=== PATIENT | male | born 1955 | race Caucasian/White ===

== ENCOUNTER → 2017-01-18 | Outpatient (REF) | payer OTHER | LOC: M LAB REF 14:06 | PROVIDERS: ATTEND Physician Assistant Medical | DX: R19.7 Diarrhea, unspecified (principal) ==

== ENCOUNTER → 2017-02-06 | Outpatient (CLI) | payer OTHER ==
[2017-02-06 07:45] LABS: ALBUMIN 3.9 GM/DL (3.2-5.2); ALBUMIN/GLOBULIN RATIO 1.44 (1.00-1.93); ALKALINE PHOSPHATASE 117 U/L (45-117); ALT/SGPT 40 U/L (12-78); ANION GAP 11 MEQ/L (8-16); AST/SGOT 31 U/L (15-37); BILIRUBIN,TOTAL 0.9 MG/DL (0.2-1.0); BLOOD UREA NITROGEN 26 MG/DL (7-18); CALCIUM LEVEL 7.4 MG/DL (8.8-10.2); CARBON DIOXIDE LEVEL 23 MEQ/L (21-32); CHLORIDE LEVEL 106 MEQ/L (98-107); CHOLESTEROL LEVEL 132 MG/DL (<200); CREATININE FOR GFR 1.09 MG/DL (0.70-1.30); GLOMERULAR FILTRATION RATE > 60.0 (>49); GLUCOSE, FASTING 76 MG/DL (80-110); POTASSIUM SERUM 4.2 MEQ/L (3.5-5.1); SODIUM LEVEL 140 MEQ/L (136-145); TOTAL PROTEIN 6.6 GM/DL (6.4-8.2); TRIGLYCERIDES LEVEL 145 MG/DL (<150)
== END ==
LOC: M LAB 06:40
PROVIDERS: ATTEND Internal Medicine
DX: E11.9 Type 2 diabetes mellitus without complications (principal); E78.00 Pure hypercholesterolemia, unspecified

== ENCOUNTER → 2017-02-17 | Outpatient (CLI) | payer OTHER ==
[~2017-02-17] MED LIST: ANDR1.62 TD; ASPI32ECTA PO; CARV25TA PO; FOLI1TAB2 PO; FURO40TA2 PO; GLYB5TA PO; IMOD2CAP PO; INVO100T PO; MELO15TA4 PO; METF500T PO; OMEP40CA2 PO; POTA550T2 PO; QUIN40TA5 PO; SIMV40TA2 PO; VICT18IN SC
[2017-02-17 13:20] LABS: BASO # 0.1 K/mm3 (0.0-0.2); BASO % 0.9 % (0.0-1.0); EOS # 0.1 K/mm3 (0.0-0.50); LARGE UNSTAINED CELL # 0.1 K/mm3 (0.0-0.4); LARGE UNSTAINED CELL % 2.1 % (0.0-4.0); LYMPH % 16.4 % (24.0-44.0); MEAN CORPUSCULAR HEMOGLOBIN 30.5 pg (27.0-33.0); MEAN CORPUSCULAR HGB CONC 32.1 g/dl (32.0-36.5); MEAN CORPUSCULAR VOLUME 95.1 fl (80.0-96.0); MONO # 0.4 K/mm3 (0.0-0.8); MONO % 6.8 % (0.0-5.0); NEUTROPHILS # 4.5 K/mm3 (1.8-7.7); NEUTROPHILS % 71.8 % (36.0-66.0); PLATELET COUNT, AUTOMATED 143 k/mm3 (150-450); RED CELL DISTRIBUTION WIDTH 12.5 % (11.5-14.5); WHITE BLOOD COUNT 6.3 K/mm3 (4.0-10.0)
[2017-02-17 13:49] LABS: ERYTHROCYTE SEDIMENTATION RATE 11 mm/hr (0-20)
[2017-02-17 14:14] LABS: ALBUMIN 3.7 GM/DL (3.2-5.2); ALBUMIN/GLOBULIN RATIO 1.42 (1.00-1.93); ALKALINE PHOSPHATASE 111 U/L (45-117); ALT/SGPT 41 U/L (12-78); ANION GAP 9 MEQ/L (8-16); AST/SGOT 29 U/L (15-37); BLOOD UREA NITROGEN 21 MG/DL (7-18); CALCIUM LEVEL 8.7 MG/DL (8.8-10.2); CARBON DIOXIDE LEVEL 25 MEQ/L (21-32); CHLORIDE LEVEL 106 MEQ/L (98-107); CREATININE FOR GFR 1.04 MG/DL (0.70-1.30); FREE T4 0.83 NG/DL (0.76-1.46); GLOMERULAR FILTRATION RATE > 60.0 (>49); GLUCOSE, FASTING 126 MG/DL (80-110); POTASSIUM SERUM 4.4 MEQ/L (3.5-5.1); SODIUM LEVEL 140 MEQ/L (136-145); TOTAL PROTEIN 6.3 GM/DL (6.4-8.2)
== END ==
LOC: M LAB 12:32
PROVIDERS: ATTEND Physician Assistant Medical
DX: R19.7 Diarrhea, unspecified (principal)

== ENCOUNTER → 2017-02-20 | Outpatient (CLI) | payer OTHER ==
[~2017-02-20] VITALS: Ht 167.6 cm; Wt 90.7 kg
[~2017-02-20] MED LIST changes: +NS 1,000 ML IV ONE; +PROPOFOL 200 MG/20 ML VIAL As Ordered ONE
--- NOTE | 2017-02-20 09:30 | ROOR ---
Patient Name: Kirill Rivera Procedure Date: 02/20/2017 9:12 AM Date of : 1955 Age: 61 Room: [facility] Gender: Male Note Status: Finalized Procedure: Colonoscopy Indications: High risk colon cancer surveillance: Personal history of colonic polyps, Last colonoscopy: December 2013 Providers: Nikolas العراقي MD Referring MD: Eleuterio Esquivel MD Requesting Provider: Medicines: Monitored Anesthesia Care Complications: No immediate complications. Procedure: Pre-Anesthesia Assessment: - The heart rate, respiratory rate, oxygen saturations, blood pressure, adequacy of pulmonary ventilation, and response to care were monitored throughout the procedure. The Colonoscope was introduced through the anus and advanced to the cecum, identified by appendiceal orifice and ileocecal valve. The colonoscopy was performed without difficulty. The patient tolerated the procedure well. The quality of the bowel preparation was good. Findings: The perianal and digital rectal examinations were normal. A tattoo was seen in the mid rectum. A post-polypectomy scar was found at the tattoo site. There was no evidence of residual polyp tissue. A few small-mouthed diverticula were found in the sigmoid colon. Small Internal Hemorrhoids. The entire examined colon appeared normal on direct and retroflexion views. Impression: - A tattoo was seen in the mid rectum. A post-polypectomy scar was found at the tattoo site. There was no evidence of residual polyp tissue. - Mild diverticulosis in the sigmoid colon. - Small Internal Hemorrhoids. - The entire examined colon is normal on direct and retroflexion views. - No specimens collected. Recommendation: - Repeat colonoscopy in 5 years for surveillance. Nikolas العراقي MD Nikolas العراقي MD 02/20/2017 9:29:29 AM This report has been signed electronically. Number of Addenda: 0 Note Initiated On: 02/20/2017 9:12 AM Estimated Blood Loss: Estimated blood loss: none.
[2017-02-20 09:40] VITALS: BP 137/79
== END ==
LOC: M OPP 08:34
PROVIDERS: ATTEND Internal Medicine Gastroenterology
DX: Z12.11 Encounter for screening for malignant neoplasm of colon (principal); Z86.010 Personal history of colon polyps; K57.30 Diverticulosis of large intestine without perforation or abscess without bleeding; K64.8 Other hemorrhoids; I10 Essential (primary) hypertension; E11.9 Type 2 diabetes mellitus without complications; E78.5 Hyperlipidemia, unspecified; R19.7 Diarrhea, unspecified; R19.4 Change in bowel habit; Z95.5 Presence of coronary angioplasty implant and graft; I25.10 Atherosclerotic heart disease of native coronary artery without angina pectoris; K21.9 Gastro-esophageal reflux disease without esophagitis; M19.90 Unspecified osteoarthritis, unspecified site; Z79.82 Long term (current) use of aspirin; Z79.84 Long term (current) use of oral hypoglycemic drugs; Z79.4 Long term (current) use of insulin; Z79.899 Other long term (current) drug therapy

== ENCOUNTER → 2017-08-07 | Outpatient (CLI) | payer OTHER ==
[~2017-08-07] MED LIST changes: +ASPI325T24 PO; -ASPI32ECTA PO; -FOLI1TAB2 PO; +FOLI1TAB4 PO; -METF500T PO; +METF500T13 PO; -NS 1,000 ML IV ONE; -PROPOFOL 200 MG/20 ML VIAL As Ordered ONE; +QUIN1TAB15 PO; -QUIN40TA5 PO
[2017-08-07 08:03] LABS: MEAN CORPUSCULAR HEMOGLOBIN 28.8 pg (27.0-33.0); MEAN CORPUSCULAR HGB CONC 32.4 g/dl (32.0-36.5); MEAN CORPUSCULAR VOLUME 88.8 fl (80.0-96.0); PLATELET COUNT, AUTOMATED 159 10^3/uL (150-450); RED CELL DISTRIBUTION WIDTH 14.9 % (11.5-14.5); WHITE BLOOD COUNT 5.9 10^3/uL (4.0-10.0)
[2017-08-07 08:13] LABS: ALBUMIN 3.9 GM/DL (3.2-5.2); ALBUMIN/GLOBULIN RATIO 1.34 (1.00-1.93); ALKALINE PHOSPHATASE 91 U/L (45-117); ALT/SGPT 43 U/L (12-78); ANION GAP 11 MEQ/L (8-16); AST/SGOT 29 U/L (15-37); BILIRUBIN,TOTAL 1.5 MG/DL (0.2-1.0); BLOOD UREA NITROGEN 24 MG/DL (7-18); CALCIUM LEVEL 8.9 MG/DL (8.8-10.2); CARBON DIOXIDE LEVEL 23 MEQ/L (21-32); CHLORIDE LEVEL 105 MEQ/L (98-107); CREATININE FOR GFR 1.21 MG/DL (0.70-1.30); GLOMERULAR FILTRATION RATE > 60.0 (>49); GLUCOSE, FASTING 143 MG/DL (80-110); MAGNESIUM LEVEL 2.3 MG/DL (1.8-2.4); POTASSIUM SERUM 4.3 MEQ/L (3.5-5.1); SODIUM LEVEL 139 MEQ/L (136-145); TOTAL PROTEIN 6.8 GM/DL (6.4-8.2)
== END ==
LOC: M LAB 06:15
PROVIDERS: ATTEND Internal Medicine
DX: K76.0 Fatty (change of) liver, not elsewhere classified (principal); E11.9 Type 2 diabetes mellitus without complications; I10 Essential (primary) hypertension; Z86.010 Personal history of colon polyps

== ENCOUNTER → 2018-02-05 | Outpatient (CLI) | payer OTHER ==
[2018-02-05 06:59] LABS: HEMATOCRIT 39.5 % (42.0-52.0); HEMOGLOBIN 12.8 g/dl (13.5-17.5); MEAN CORPUSCULAR HGB CONC 32.4 g/dl (32.0-36.5); MEAN CORPUSCULAR VOLUME 89.4 fl (80.0-96.0); PLATELET COUNT, AUTOMATED 140 10^3/uL (150-450); RED BLOOD COUNT 4.42 10^6/uL (4.30-6.10); RED CELL DISTRIBUTION WIDTH 13.4 % (11.5-14.5)
[2018-02-05 07:36] LABS: ALBUMIN 3.2 GM/DL (3.2-5.2); ALBUMIN/GLOBULIN RATIO 1.07 (1.00-1.93); ALKALINE PHOSPHATASE 68 U/L (45-117); ALT/SGPT 52 U/L (12-78); ANION GAP 6 MEQ/L (8-16); AST/SGOT 53 U/L (7-37); BLOOD UREA NITROGEN 19 MG/DL (7-18); CALCIUM LEVEL 8.4 MG/DL (8.8-10.2); CARBON DIOXIDE LEVEL 24 MEQ/L (21-32); CHLORIDE LEVEL 109 MEQ/L (98-107); CHOLESTEROL LEVEL 90 MG/DL (<200); CHOLESTEROL RISK RATIO 3.103 (<5); CREATININE FOR GFR 1.08 MG/DL (0.70-1.30); GLOMERULAR FILTRATION RATE > 60.0 (>49); GLUCOSE, FASTING 78 MG/DL (70-100); HDL CHOLESTEROL 29 MG/DL (>40); LDL CHOLESTEROL 21.4 MG/DL (<100); NON-HDL-C 61 MG/DL; POTASSIUM SERUM 4.1 MEQ/L (3.5-5.1); SODIUM LEVEL 139 MEQ/L (136-145); TOTAL PROTEIN 6.2 GM/DL (6.4-8.2); TRIGLYCERIDES LEVEL 198 MG/DL (<150)
[2018-02-05 11:46] LABS: ESTIMATED AVERAGE GLUCOSE 134 MG/DL (60-110); HEMOGLOBIN A1c 6.3 %
== END ==
LOC: M LAB 05:56
DX: Z51.81 Encounter for therapeutic drug level monitoring (principal); Z79.899 Other long term (current) drug therapy; H40.9 Unspecified glaucoma; I25.10 Atherosclerotic heart disease of native coronary artery without angina pectoris; E78.00 Pure hypercholesterolemia, unspecified; E11.42 Type 2 diabetes mellitus with diabetic polyneuropathy

== ENCOUNTER → 2018-07-23 | Outpatient (CLI) | payer OTHER ==
[2018-07-23 06:46] LABS: HEMATOCRIT 40.1 % (42.0-52.0); HEMOGLOBIN 12.9 g/dl (13.5-17.5); MEAN CORPUSCULAR HEMOGLOBIN 28.7 pg (27.0-33.0); MEAN CORPUSCULAR HGB CONC 32.2 g/dl (32.0-36.5); MEAN CORPUSCULAR VOLUME 89.3 fl (80.0-96.0); PLATELET COUNT, AUTOMATED 138 10^3/uL (150-450); RED BLOOD COUNT 4.49 10^6/uL (4.30-6.10); RED CELL DISTRIBUTION WIDTH 14.8 % (11.5-14.5); WHITE BLOOD COUNT 6.3 10^3/uL (4.0-10.0)
[2018-07-23 07:04] LABS: ESTIMATED AVERAGE GLUCOSE 160 MG/DL (60-110); HEMOGLOBIN A1c 7.2 %
[2018-07-23 07:19] LABS: ALBUMIN 3.9 GM/DL (3.2-5.2); ALKALINE PHOSPHATASE 70 U/L (45-117); ALT/SGPT 31 U/L (12-78); ANION GAP 10 MEQ/L (8-16); AST/SGOT 24 U/L (7-37); BILIRUBIN,TOTAL 1.3 MG/DL (0.2-1.0); BLOOD UREA NITROGEN 25 MG/DL (7-18); CALCIUM LEVEL 8.5 MG/DL (8.8-10.2); CARBON DIOXIDE LEVEL 23 MEQ/L (21-32); CHLORIDE LEVEL 106 MEQ/L (98-107); CHOLESTEROL LEVEL 125 MG/DL (<200); CHOLESTEROL RISK RATIO 2.777 (<5); CREATININE FOR GFR 1.32 MG/DL (0.70-1.30); GLOMERULAR FILTRATION RATE 58.3 (>49); GLUCOSE, FASTING 133 MG/DL (70-100); HDL CHOLESTEROL 45 MG/DL (>40); LDL CHOLESTEROL 50 MG/DL (<100); MAGNESIUM LEVEL 2.1 MG/DL (1.8-2.4); NON-HDL-C 80 MG/DL; POTASSIUM SERUM 4.6 MEQ/L (3.5-5.1); SODIUM LEVEL 139 MEQ/L (136-145); TOTAL PROTEIN 6.9 GM/DL (6.4-8.2); TRIGLYCERIDES LEVEL 151 MG/DL (<150)
[2018-07-23 07:40] LABS: MALB URINE SIEMENS 7.6 MG/L
[2018-07-23 07:47] LABS: MAU/CREAT RATIO 4.7 MCG/MG (0.0-30.0)
== END ==
LOC: M LAB 06:12
DX: E11.42 Type 2 diabetes mellitus with diabetic polyneuropathy (principal); I10 Essential (primary) hypertension
CPT/HCPCS: 83735

== ENCOUNTER → 2018-11-05 | Outpatient (REF) | payer OTHER ==
[~2018-11-05] MED LIST changes: -ASPI325T24 PO; +ASPI325T25 PO; +FOLI1TAB11 PO; -FOLI1TAB4 PO; +MELO15TA28 PO; -MELO15TA4 PO; -QUIN1TAB15 PO; +QUIN1TAB4 PO
[2018-11-05 12:38] LABS: HEMOGLOBIN A1c 7.1 %
== END ==
LOC: M SFHCPLAZ 08:24
PROVIDERS: ATTEND Internal Medicine
DX: E11.42 Type 2 diabetes mellitus with diabetic polyneuropathy (principal)

== ENCOUNTER → 2019-01-29 | Outpatient (CLI) | payer OTHER ==
[~2019-01-29] MED LIST changes: +ASPI-255 PO; -ASPI325T25 PO
[2019-01-29 07:29] LABS: HEMOGLOBIN A1c 6.7 %
[2019-01-29 07:40] LABS: ALBUMIN 3.8 GM/DL (3.2-5.2); BILIRUBIN,TOTAL 0.8 MG/DL (0.2-1.0); CALCIUM LEVEL 8.5 MG/DL (8.8-10.2); CREATININE FOR GFR 1.38 MG/DL (0.70-1.30); GLOMERULAR FILTRATION RATE 55.4 (>49); MAGNESIUM LEVEL 2.3 MG/DL (1.8-2.4); POTASSIUM SERUM 4.6 MEQ/L (3.5-5.1); TOTAL PROTEIN 6.4 GM/DL (6.4-8.2)
== END ==
LOC: M LAB 06:09
PROVIDERS: ATTEND Internal Medicine
DX: E11.42 Type 2 diabetes mellitus with diabetic polyneuropathy (principal)

== ENCOUNTER → 2019-07-26 | Outpatient (CLI) | payer OTHER ==
[~2019-07-26] MED LIST changes: -OMEP40CA2 PO; +OMEP40CA97 PO
[2019-07-26 07:25] LABS: HEMATOCRIT 42.2 % (42.0-52.0); HEMOGLOBIN 13.8 g/dl (13.5-17.5); MEAN CORPUSCULAR HGB CONC 32.7 g/dl (32.0-36.5); MEAN CORPUSCULAR VOLUME 91.7 fl (80.0-96.0); PLATELET COUNT, AUTOMATED 139 10^3/uL (150-450); WHITE BLOOD COUNT 4.7 10^3/uL (4.0-10.0)
[2019-07-26 07:40] LABS: HEMOGLOBIN A1c 8.2 %
[2019-07-26 07:57] LABS: ALBUMIN 3.9 GM/DL (3.2-5.2); ALT/SGPT 42 U/L (12-78); BILIRUBIN,TOTAL 1.2 MG/DL (0.2-1.0); BLOOD UREA NITROGEN 24 MG/DL (7-18); CARBON DIOXIDE LEVEL 24 MEQ/L (21-32); CHLORIDE LEVEL 107 MEQ/L (98-107); CHOLESTEROL LEVEL 135 MG/DL (<200); CHOLESTEROL RISK RATIO 2.934 (<5); CREATININE FOR GFR 1.23 MG/DL (0.70-1.30); GLOMERULAR FILTRATION RATE > 60.0 (>49); GLUCOSE, FASTING 181 MG/DL (70-100); HDL CHOLESTEROL 46 MG/DL (>40); LDL CHOLESTEROL 65 MG/DL (<100); MAGNESIUM LEVEL 2.3 MG/DL (1.8-2.4); NON-HDL-C 89 MG/DL; POTASSIUM SERUM 4.5 MEQ/L (3.5-5.1); SODIUM LEVEL 141 MEQ/L (136-145); TOTAL PROTEIN 6.6 GM/DL (6.4-8.2); TRIGLYCERIDES LEVEL 119 MG/DL (<150)
[2019-07-26 08:02] LABS: CREATININE, URINE 96.7 MG/DL; MALB URINE SIEMENS 5.4 MG/L; MAU/CREAT RATIO 5.5 MCG/MG (0.0-30.0)
== END ==
LOC: M LAB 06:57
PROVIDERS: ATTEND Internal Medicine
DX: E11.42 Type 2 diabetes mellitus with diabetic polyneuropathy (principal); I10 Essential (primary) hypertension; E78.00 Pure hypercholesterolemia, unspecified; Z79.899 Other long term (current) drug therapy

== ENCOUNTER → 2019-11-29 | Outpatient (CLI) | payer OTHER ==
[~2019-11-29] MED LIST changes: -SIMV40TA2 PO; +SIMV40TA20 PO
[2019-11-29 06:55] LABS: HEMOGLOBIN A1c 7.9 %
[2019-11-29 06:58] LABS: ALBUMIN 4.1 GM/DL (3.2-5.2); ALT/SGPT 40 U/L (12-78); BILIRUBIN,TOTAL 1.1 MG/DL (0.2-1.0); BLOOD UREA NITROGEN 23 MG/DL (7-18); CARBON DIOXIDE LEVEL 26 MEQ/L (21-32); CHLORIDE LEVEL 107 MEQ/L (98-107); CREATININE FOR GFR 1.15 MG/DL (0.70-1.30); GLOMERULAR FILTRATION RATE > 60.0 (>49); GLUCOSE, FASTING 151 MG/DL (70-100); POTASSIUM SERUM 4.6 MEQ/L (3.5-5.1); SODIUM LEVEL 140 MEQ/L (136-145); TOTAL PROTEIN 6.9 GM/DL (6.4-8.2)
== END ==
LOC: M LAB 06:15
PROVIDERS: ATTEND Internal Medicine
DX: E11.9 Type 2 diabetes mellitus without complications (principal)

== ENCOUNTER → 2020-06-02 | Outpatient (CLI) | payer OTHER ==
[2020-07-27 04:18] LABS: ALBUMIN 3.9 GM/DL (3.2-5.2); ALT/SGPT 29 U/L (12-78); BLOOD UREA NITROGEN 32 MG/DL (7-18); CALCIUM LEVEL 8.9 MG/DL (8.8-10.2); CARBON DIOXIDE LEVEL 24 MEQ/L (21-32); CHLORIDE LEVEL 107 MEQ/L (98-107); CHOLESTEROL LEVEL 149 MG/DL (<200); CHOLESTEROL RISK RATIO 2.921 (<5); CREATININE FOR GFR 1.17 MG/DL (0.70-1.30); GLOMERULAR FILTRATION RATE > 60.0 (>49); GLUCOSE, FASTING 202 MG/DL (70-100); HDL CHOLESTEROL 51 MG/DL (>40); LDL CHOLESTEROL 72 MG/DL (<100); MAGNESIUM LEVEL 2.5 MG/DL (1.8-2.4); MALB URINE SIEMENS < 5.0 MG/L; NON-HDL-C 98 MG/DL; POTASSIUM SERUM 4.7 MEQ/L (3.5-5.1); SODIUM LEVEL 138 MEQ/L (136-145); TOTAL PROTEIN 6.8 GM/DL (6.4-8.2); TRIGLYCERIDES LEVEL 128 MG/DL (<150)
== END ==
LOC: M LAB 06:22
PROVIDERS: ATTEND Internal Medicine
DX: I10 Essential (primary) hypertension (principal); E11.42 Type 2 diabetes mellitus with diabetic polyneuropathy; E78.00 Pure hypercholesterolemia, unspecified

== ENCOUNTER → 2020-06-05 | Outpatient (CLI) | payer OTHER | LOC: M RAD 15:15 | PROVIDERS: ATTEND Orthopaedic Surgery Sports Medicine | DX: S46.211A Strain of muscle, fascia and tendon of other parts of biceps, right arm, initial encounter (principal); M25.511 Pain in right shoulder ==

== ENCOUNTER → 2020-07-01 | Outpatient (CLI) | payer OTHER ==
[2020-07-01 07:56] LABS: HEMOGLOBIN A1c 7.8 %
== END ==
LOC: M LAB 06:14
PROVIDERS: ATTEND Internal Medicine
DX: E11.42 Type 2 diabetes mellitus with diabetic polyneuropathy (principal)

== ENCOUNTER → 2020-10-15 | Outpatient (REF) | payer OTHER ==
[2020-10-15 11:14] LABS: BASO # 0.1 10^3/uL (0.0-0.2); BASO % 0.9 % (0.0-1.0); EOS # 0.1 10^3/uL (0.0-0.5); EOS % 2.5 % (0.0-3.0); HEMATOCRIT 45.9 % (42.0-52.0); HEMOGLOBIN 14.6 g/dl (13.5-17.5); LYMPH # 0.8 10^3/uL (1.5-5.0); LYMPH % 15.6 % (24.0-44.0); MEAN CORPUSCULAR HEMOGLOBIN 31.2 pg (27.0-33.0); MEAN CORPUSCULAR HGB CONC 31.8 g/dl (32.0-36.5); MEAN CORPUSCULAR VOLUME 98.1 fl (80.0-96.0); MONO # 0.5 10^3/uL (0.0-0.8); MONO % 10.2 % (0.0-5.0); NEUTROPHILS # 3.7 10^3/uL (1.5-8.5); PLATELET COUNT, AUTOMATED 147 10^3/uL (150-450); RED BLOOD COUNT 4.68 10^6/uL (4.30-6.10); WHITE BLOOD COUNT 5.3 10^3/uL (4.0-10.0)
[2020-10-15 11:29] LABS: HEMOGLOBIN A1c 9.3 %
[2020-10-15 11:59] LABS: ALBUMIN 4.1 GM/DL (3.2-5.2); ALT/SGPT 33 U/L (12-78); BILIRUBIN,TOTAL 0.9 MG/DL (0.2-1.0); BLOOD UREA NITROGEN 28 MG/DL (7-18); CALCIUM LEVEL 8.6 MG/DL (8.8-10.2); CARBON DIOXIDE LEVEL 26 MEQ/L (21-32); CHLORIDE LEVEL 103 MEQ/L (98-107); CREATININE FOR GFR 1.21 MG/DL (0.70-1.30); GLOMERULAR FILTRATION RATE > 60.0 (>49); GLUCOSE, FASTING 223 MG/DL (70-100); MAGNESIUM LEVEL 2.3 MG/DL (1.8-2.4); POTASSIUM SERUM 4.4 MEQ/L (3.5-5.1); SODIUM LEVEL 136 MEQ/L (136-145); TOTAL PROTEIN 6.9 GM/DL (6.4-8.2)
[2020-10-15 12:08] LABS: CREATININE, URINE 24.7 MG/DL; MALB URINE SIEMENS 5.2 MG/L
== END ==
LOC: M SFHCPLAZ 09:16
PROVIDERS: ATTEND Internal Medicine
DX: I10 Essential (primary) hypertension (principal); E11.42 Type 2 diabetes mellitus with diabetic polyneuropathy; Z86.010 Personal history of colon polyps

== ENCOUNTER → 2021-02-15 | Outpatient (CLI) | payer OTHER ==
[~2021-02-15] MED LIST changes: -GLYB5TA PO; +GLYB5TAB6 PO
[2021-02-15 07:40] LABS: ALBUMIN 4.1 GM/DL (3.2-5.2); ALT/SGPT 37 U/L (12-78); BILIRUBIN,TOTAL 1.2 MG/DL (0.2-1.0); BLOOD UREA NITROGEN 21 MG/DL (7-18); CALCIUM LEVEL 9.8 MG/DL (8.8-10.2); CARBON DIOXIDE LEVEL 25 MEQ/L (21-32); CHLORIDE LEVEL 103 MEQ/L (98-107); CHOLESTEROL LEVEL 144 MG/DL (<200); CREATININE FOR GFR 1.11 MG/DL (0.70-1.30); GLOMERULAR FILTRATION RATE > 60.0 (>49); GLUCOSE, FASTING 217 MG/DL (70-100); HDL CHOLESTEROL 50 MG/DL (>40); LDL CHOLESTEROL 74 MG/DL (<100); MAGNESIUM LEVEL 2.4 MG/DL (1.8-2.4); NON-HDL-C 94 MG/DL; POTASSIUM SERUM 4.5 MEQ/L (3.5-5.1); SODIUM LEVEL 138 MEQ/L (136-145); TOTAL PROTEIN 6.8 GM/DL (6.4-8.2); TRIGLYCERIDES LEVEL 100 MG/DL (<150)
[2021-02-15 12:05] LABS: HEPATITIS C VIRUS ABY INDEX < 0.0 INDEX (<0.8)
[2021-02-15 13:19] LABS: HEMOGLOBIN A1c 8.9 %
== END ==
LOC: M LAB 06:15
PROVIDERS: ATTEND Internal Medicine
DX: I10 Essential (primary) hypertension (principal)

== ENCOUNTER → 2021-06-07 | Outpatient (CLI) | payer OTHER ==
[~2021-06-07] MED LIST changes: +FURO80TA2 PO; +NORT25CA2; +OMEP40CA4 PO; -OMEP40CA97 PO; +POTA99TA10; +TADA20TA; +TAMS1CAP17
== END ==
LOC: M LABSMTC 10:41
PROVIDERS: ATTEND Anesthesiology
DX: Z01.818 Encounter for other preprocedural examination (principal); Z11.52 Encounter for screening for COVID-19

== ENCOUNTER 2021-06-10 10:10 | Emergency (ER) | payer OTHER ==
[~2021-06-10] VITALS: Ht 167.6 cm; Wt 86.3 kg
[2021-06-10] MEDS ORDERED: ceFAZolin SOD 2 GM in IV 1 EA IV ONE (13:20)
[2021-06-10] MEDS ORDERED: LIDOCAINE 1% MDV 20ML VIAL SC ONE (13:20)
[2021-06-10 13:55] LABS: BASO # 0.1 10^3/uL (0.0-0.2); BASO % 0.8 % (0.0-1.0); EOS # 0.4 10^3/uL (0.0-0.5); EOS % 4.3 % (0.0-3.0); HEMOGLOBIN 16.1 g/dl (13.5-17.5); LYMPH # 0.8 10^3/uL (1.5-5.0); LYMPH % 8.7 % (24.0-44.0); MEAN CORPUSCULAR HEMOGLOBIN 34.1 pg (27.0-33.0); MEAN CORPUSCULAR HGB CONC 34.3 g/dl (32.0-36.5); MEAN CORPUSCULAR VOLUME 99.6 fl (80.0-96.0); MONO # 0.8 10^3/uL (0.0-0.8); MONO % 8.7 % (2.0-8.0); NEUTROPHILS # 6.7 10^3/uL (1.5-8.5); NEUTROPHILS % 77.2 % (36.0-66.0); PLATELET COUNT, AUTOMATED 166 10^3/uL (150-450); RED BLOOD COUNT 4.72 10^6/uL (4.30-6.10); WHITE BLOOD COUNT 8.6 10^3/uL (4.0-10.0)
[2021-06-10 14:14] LABS: BLOOD UREA NITROGEN 15 MG/DL (7-18); CALCIUM LEVEL 9.6 MG/DL (8.8-10.2); CARBON DIOXIDE LEVEL 25 MEQ/L (21-32); CHLORIDE LEVEL 105 MEQ/L (98-107); CREATININE FOR GFR 0.92 MG/DL (0.70-1.30); GLOMERULAR FILTRATION RATE > 60.0 (>49); GLUCOSE, FASTING 155 MG/DL (70-100); POTASSIUM SERUM 4.5 MEQ/L (3.5-5.1); SODIUM LEVEL 136 MEQ/L (136-145)
[2021-06-10] MEDS ORDERED: CEPH500C PO (14:39)
[2021-06-10] MEDS ORDERED: QUINAPRIL 20 MG TAB PO ONE (14:45)
[2021-06-10] MEDS ORDERED: CARVedilol 12.5 MG TAB PO ONE (14:45)
[2021-06-10 15:34] VITALS: BP 150/90
[2021-06-11] MEDS ORDERED: DOXY1CAP62 PO (21:30)
[2021-06-14 15:11] LABS: Lyme Disease IgG/IgM Antibodie <0.91 ISR (0.00-0.90); Lyme Disease IgM Ab Quantitati <0.80 index (0.00-0.79)
== END 2021-06-10 15:44 | disposition home or self-care (01) ==
LOC: M ED 10:10
DX: L02.512 Cutaneous abscess of left hand (principal); L03.114 Cellulitis of left upper limb; Z79.82 Long term (current) use of aspirin; Z79.4 Long term (current) use of insulin; Z79.899 Other long term (current) drug therapy; Z88.8 Allergy status to other drugs, medicaments and biological substances
CPT/HCPCS: 10060; 36415; 80048; 85025; 86617; 87040; 87070; 87077; 87186; 87205; 87798; 96365; 99284; J0690

== ENCOUNTER 2021-06-11 15:11 | Emergency (ER) | payer OTHER ==
[~2021-06-11] VITALS: Ht 165.1 cm; Wt 85.9 kg
[~2021-06-11 15:11] MED LIST changes: +CEPH500C PO
[2021-06-11] MEDS ORDERED: NS 1,000 ML IV ONE (19:05)
[2021-06-11] MEDS ORDERED: VANCOMYCIN HCL 1,750 MG in IV FLUID PLACE HOLDER 1 EA IV ONE (19:05)
[2021-06-11] MEDS ORDERED: VANCOMYCIN HCL 1,000 MG, VIAL MATE ADAPTER 1 EACH in NS 250 ML IV ONE (19:30)
--- NOTE | 2021-06-11 19:40 | REP ---
INDICATION: pain/swelling ? osteo COMPARISON: None. TECHNIQUE: AP, lateral, bilateral oblique views left hand. FINDINGS: Nonspecific generalized age-related degenerative changes are appreciated. There is no evidence for acute fracture. No periosteal reaction. No subcutaneous emphysema or foreign body. IMPRESSION: Generalized age-related degenerative changes. <Electronically signed by Kirill Anna > 06/11/211935
[2021-06-11] MEDS ORDERED: VANCOMYCIN HCL 750 MG, VIAL MATE ADAPTER 1 EACH in NS 250 ML IV ONE (20:30)
[2021-06-11 20:42] LABS: BASO # 0.1 10^3/uL (0.0-0.2); BASO % 0.6 % (0.0-1.0); EOS # 0.3 10^3/uL (0.0-0.5); EOS % 2.7 % (0.0-3.0); HEMATOCRIT 47.3 % (42.0-52.0); HEMOGLOBIN 16.1 g/dl (13.5-17.5); LYMPH # 0.8 10^3/uL (1.5-5.0); MEAN CORPUSCULAR HEMOGLOBIN 34.3 pg (27.0-33.0); MEAN CORPUSCULAR VOLUME 100.9 fl (80.0-96.0); MONO # 1.1 10^3/uL (0.0-0.8); MONO % 10.2 % (2.0-8.0); NEUTROPHILS % 77.9 % (36.0-66.0); PLATELET COUNT, AUTOMATED 183 10^3/uL (150-450); RED BLOOD COUNT 4.69 10^6/uL (4.30-6.10); WHITE BLOOD COUNT 10.3 10^3/uL (4.0-10.0)
[2021-06-11 21:02] LABS: ERYTHROCYTE SEDIMENTATION RATE 12 mm/hr (0-20)
[2021-06-11 21:10] LABS: ALBUMIN 4.1 GM/DL (3.2-5.2); ALT/SGPT 28 U/L (12-78); BILIRUBIN,DIRECT 0.5 MG/DL (0.0-0.2); BILIRUBIN,TOTAL 2.1 MG/DL (0.2-1.0); BLOOD UREA NITROGEN 19 MG/DL (7-18); CALCIUM LEVEL 9.5 MG/DL (8.8-10.2); CARBON DIOXIDE LEVEL 28 MEQ/L (21-32); CHLORIDE LEVEL 104 MEQ/L (98-107); CREATININE FOR GFR 1.22 MG/DL (0.70-1.30); GLOMERULAR FILTRATION RATE > 60.0 (>49); GLUCOSE, FASTING 162 MG/DL (70-100); SODIUM LEVEL 139 MEQ/L (136-145); TOTAL PROTEIN 7.8 GM/DL (6.4-8.2)
[2021-06-11] MEDS ORDERED: DOXY1CAP62 PO (21:30)
[2021-06-11 23:15] LABS: RSV AMPLIFICATION NEGATIVE (NEGATIVE)
[2021-06-12] MEDS ORDERED: CIPROFLOXACIN 500MG TABLET PO ONE (00:30)
--- NOTE | 2021-06-12 00:31 | CR.PDOC ---
General Date of Consultation: Jun 12, 2021 Referring Provider: TRELL VAZ PA-C Consultation REASON FOR CONSULTATION/CHIEF COMPLAINT: 65 yo M w/ L hand swelling and drainage. Pt. was seen ~ 3 days previously. Attempt at local I&D was made and pt. sent home on Keflex. He returns today with increasing drainage and erythema about his hand. RHD. HISTORY OF PRESENT ILLNESS: As above. ALLERGIES: Please see below. HOME MEDICATIONS: Please see below. PAST MEDICAL HISTORY: 1. DM2. 2. HTN. REVIEW OF SYSTEMS: CONSTITUTIONAL: . HEENT: . CARDIOVASCULAR: RESPIRATORY: . GENITOURINARY: . MUSCULOSKELETAL: L hand wound GASTROINTESTINAL: . SKIN: . NEUROLOGICAL: PSYCHIATRIC: . ENDOCRINE: . HEMATOLOGIC/LYMPHATIC: . ALLERGIC/IMMUNOLOGIC: . PHYSICAL EXAMINATION: VITAL SIGNS: Please see below. GENERAL APPEARANCE: . HEENT: . RESPIRATORY: . CARDIOVASCULAR: . ABDOMEN: . EXTREMITIES: L hand - + erythema to L hand, maceration from DIP to MCP decreased ROM. NEUROLOGICAL: AIN/PIN/U intact. PSYCHIATRIC: . LABORATORY DATA: Please see below. ASSESSMENT/PLAN: 1. Pt. with extensive dorsal hand wound, tracking erythema and maceration --> will require I&D and benefit from hand specialist given tissue loss. 2. Con't Abx Vital Signs/I&O Vital Signs Date Time Temp Pulse Resp B/P (MAP) Pulse Ox O2 Delivery O2 Flow Rate FiO2 06/11/21 15:11 98.2 68 18 147/77 (100) 98 Room Air I&O- Last 24 Hours up to 6 AM 06/12/21 06:00 Intake Total 1545 ml Balance 1545 ml Laboratory Data Labs 24H Laboratory Tests 2 06/11/21 19:04: Immature Granulocyte % (Auto) 0.6, Neutrophils (%) (Auto) 77.9H, Lymphocytes (%) (Auto) 8.0L, Monocytes (%) (Auto) 10.2H, Eosinophils (%) (Auto) 2.7, Basophils (%) (Auto) 0.6, Neutrophils # (Auto) 8.0, Lymphocytes # (Auto) 0.8L, Monocytes # (Auto) 1.1H, Eosinophils # (Auto) 0.3, Basophils # (Auto) 0.1, Nucleated Red Blood Cells % (auto) 0.0, Erythrocyte Sedimentation Rate 12, Anion Gap 7L, Glomerular Filtration Rate > 60.0, Lactic Acid Level 1.5, Calcium Level 9.5, Total Bilirubin 2.1H, Direct Bilirubin 0.5H, Aspartate Amino Transf (AST/SGOT) 14, Alanine Aminotransferase (ALT/SGPT) 28, Alkaline Phosphatase 95, C-Reactive Protein, Quantitative 14.10H, Total Protein 7.8, Albumin 4.1, Albumin/Globulin Ratio 1.1 06/11/21 22:28: Coronavirus (COVID-19)(PCR) NEGATIVE, Influenza Type A (RT-PCR) NEGATIVE, Influenza Type B (RT-PCR) NEGATIVE, Respiratory Syncytial Virus (PCR) NEGATIVE CBC/BMP Laboratory Tests 06/11/21 19:04 Microbiology Microbiology 06/11/21 Blood Culture, Received Pending 06/11/21 Blood Culture, Received Pending Allergies Coded Allergies: magnesium sulfate (Verified Allergy, Unknown, 06/11/21) potassium (Verified Allergy, Unknown, 06/11/21) sodium sulfate (Verified Allergy, Unknown, 06/11/21) Home Medications Scheduled Aspirin (Aspirin EC) 325 Mg Tabec, 325 MG PO DAILY, (Reported) Canagliflozin (Invokana) 100 Mg Tab, 300 MG PO DAILY, (Reported) Carvedilol (Carvedilol) 25 Mg Tab, 25 MG PO BID, (Reported) Doxycycline Monohydrate (Doxycycline Monohydrate) 100 Mg Capsule, 100 MG PO Q12H, #20 Folic Acid (Folic Acid) 1 Mg Tab, 1 MG PO DAILY, (Reported) Furosemide (Furosemide) 80 Mg Tablet, 40 MG PO DAILY, (Reported) Glyburide (Glyburide) 5 Mg Tab, 10 MG PO BID, (Reported) Liraglutide (Victoza 2-Vimal) 18 Mg/3 Ml Inj, 1.8 MG SC DAILY, (Reported) Meloxicam (Meloxicam) 15 Mg Tab, 15 MG PO DAILY, (Reported) Metformin HCl (Metformin HCl) 500 Mg Tab, 2,250 MG PO QHS, (Reported) Omeprazole (Omeprazole) 40 Mg Cap, 40 MG PO DAILY, (Reported) Quinapril Hcl (Quinapril HCl) 40 Mg Tab, 40 MG PO DAILY, (Reported) Simvastatin (Simvastatin) 40 Mg Tab, 40 MG PO DAILY, (Reported) Miscellaneous Medications Nortriptyline HCl (Nortriptyline HCl) 25 Mg Capsule, (Reported) Potassium Gluconate (Potassium Gluconate) 99 Mg Tablet, (Reported) Tadalafil (Tadalafil) 20 Mg Tablet, (Reported) RALPH SEYMOUR MD Jun 12, 2021 00:31
[2021-06-12 00:33] VITALS: BP 158/80
== END 2021-06-12 00:48 | disposition short-term general hospital (02) ==
LOC: M ED 15:11
DX: L03.114 Cellulitis of left upper limb (principal); L02.512 Cutaneous abscess of left hand; E11.9 Type 2 diabetes mellitus without complications; I10 Essential (primary) hypertension; E78.5 Hyperlipidemia, unspecified; K21.9 Gastro-esophageal reflux disease without esophagitis; Z95.5 Presence of coronary angioplasty implant and graft
CPT/HCPCS: 73130; 80048; 80076; 83605; 85025; 85652; 86140; 87040; 87631; 96365; 96366; 99284; J3370

== ENCOUNTER → 2021-06-22 | Outpatient (CLI) | payer OTHER ==
[~2021-06-22] MED LIST changes: +DOXY1CAP62 PO
[2021-06-22 07:29] LABS: ALBUMIN 3.6 GM/DL (3.2-5.2); BILIRUBIN,TOTAL 0.7 MG/DL (0.2-1.0); CALCIUM LEVEL 8.8 MG/DL (8.8-10.2); CREATININE FOR GFR 1.38 MG/DL (0.70-1.30); GLOMERULAR FILTRATION RATE 55.1 (>49); MAGNESIUM LEVEL 2.4 MG/DL (1.8-2.4); POTASSIUM SERUM 4.6 MEQ/L (3.5-5.1); TOTAL PROTEIN 6.5 GM/DL (6.4-8.2)
[2021-06-22 07:36] LABS: CREATININE, URINE 19.1 MG/DL; MAU/CREAT RATIO 36.6 MCG/MG (0.0-30.0)
[2021-06-22 09:57] LABS: HEMOGLOBIN A1c 7.5 %
== END ==
LOC: M LAB 06:23
PROVIDERS: ATTEND Internal Medicine
DX: E11.51 Type 2 diabetes mellitus with diabetic peripheral angiopathy without gangrene (principal)

== ENCOUNTER → 2021-09-13 | Outpatient (CLI) | payer OTHER ==
[~2021-09-13] MED LIST changes: +DOXY-443 PO; -DOXY1CAP62 PO
== END ==
LOC: M LABSMTC 09:43
PROVIDERS: ATTEND Anesthesiology
DX: Z01.812 Encounter for preprocedural laboratory examination (principal); Z20.822 Contact with and (suspected) exposure to COVID-19

== ENCOUNTER 2021-09-17 06:58 | Day surgery (SDC) | payer OTHER ==
[~2021-09-17] VITALS: Ht 167.6 cm; Wt 88.5 kg
[~2021-09-17 06:58] MED LIST changes: +NS 1,000 ML IV ONE
--- OUTSIDE RECORDS SUMMARY | 2021-09-17 07:02 | CCD | Continuity of Care Document ---
Author Author Kirill CARRANZA MD Organization Unknown Address [address] [place] [address] [place] [address] Phone [phone] Problems Description No Information Available Social History Type Date Description Comments Sex Unknown Allergies, Adverse Reactions, Alerts Description No Information Available Medications Description No Information Available Immunizations Description No Information Available Vital Signs Description No Information Available Results Description No Information Available Procedures Date Code Description Status 06/12/2021 46399 Electrocardiogram Interpretation & Report Only Completed Medical Devices Description No Information Available Encounters Description No Information Available Assessments Date Code Description Provider 06/12/2021 L03.012 Cellulitis of left finger Juan Carranza MD 06/12/2021 L02.512 Cutaneous abscess of left hand J oseph Rylan Carranza MD 06/12/2021 I10 Essential (primary) hypertension Juan Carranza MD 06/12/2021 E11.9 Type 2 diabetes mellitus without complications Juan Carranza MD 06/12/2021 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
--- OUTSIDE RECORDS SUMMARY | 2021-09-17 07:02 | CCD | Continuity of Care Document ---
Author Author Kirill ESPINAL PA-C Organization Unknown Address [address] [place] [address] Phone [phone] Problems Active Problems Provider Date Type 2 diabetes mellitus LESLI Dewitt Onset: 2018 Essential hypertension LESLI Dewitt Onset: 04/22/20 19 Pure hypercholesterolemia LESLI Dewitt Onset: 04/22 Social History Type Date Description Comments Sex Unknown ETOH Use Denies alcohol use Tobacco Use Start: Unknown End: Unknown Patient is a former smoker Allergies, Adverse Reactions, Alerts Description No Information Available Medications Active Medications SIG Qnty Indications Ordering Provide r Date Euflexxa 20mg/2ML Soln [employer] Syr mina left knee #1 bms/cp 09/16/20 left knee #2 bms/cp 09/23/20 left knee #3 bms/ef 09/30/2020 Delonte Crump MD 09/16/2020 Aspirin Adult 325mg Tablets 1 by mouth every day Unknown Omeprazole 40mg Capsules DR 1 by mouth every day Unknown Simvastatin 40mg Tablets Unknown Meloxicam 15mg Tablets 1 by mouth every day with food or milk Unknown Folic Acid 1mg Tablets 1 by mouth every day Unknown Nitroglycerin 0.4mg/HR Patches 24H R 1 tab sl every 5 min times 3 doses as needed chest disc Unknown Quinapril HCL 40mg Tablets 1 by mouth every day Unknown Lasix 40mg Tablets 1 by mo uth every day Unknown Carvedilol 25mg Tablets Unknown Glyburide 5mg Tablets take two tablets by mouth twice a day Unknown Metformin HCL ER 750mg Tablets ER 24HR Unknown Victoza 18mg/3ML Solution Pen-Inje ct 1.8 mg subcutaneous injection, once daily. maximum daily dose 1.8. please dispense 3 pens Unknown Potassium Gluconate ER 595mg Tablets ER Unknown Androgel 20.25mg/1.25GM (1.62%) Ge l 2 pump actuations daily applied to upper body Unknown Invokana 300mg Tablets 1 by mouth every day Unknown Immunizations Description No Information Available Vital Signs Date Vital Result Comment 09/23/2020 2:33pm Body Temperature 97.5 F 2020 8:34am Body Temperature 97.1 F Height 66 inches 5'6" Weight 203.00 lb BMI (Body Mass Index) 32.8 kg/m2 Results Description No Information Available Procedures Date Code Description Status 07/07/2021 49851 Office/Outpatient Established Mo d MDM 30-39 Min Completed 07/07/2021 26773 X-Ray Knee Complete W/Obliques & Tunnel And/Or Standing Views Completed 07/07/2021 41186 Inject/Drain Joint/Bursa Major C ompleted 03/03/2021 29022 Office/Outpatient Established Mo d MDM 30-39 Min Completed 03/03/2021 35983 Inject/Drain Joint/Bursa Major C ompleted Medical Devices Description No Information Available Encounters Type Date Location Provider Dx Diagnosis Office Visit 07/07/2021 3:15p Luca Espinal PA-C M1 7.12 Unilateral primary osteoarthritis, left knee Office Visit 03/03/2021 3:45p Luca Espinal PA-C M1 7.12 Unilateral primary osteoarthritis, left knee M23.204 Derang of unsp medial menisc us due to old tear/inj, l knee Assessments Date Code Description Provider 07/07/2021 M17.12 Unilateral primary osteoarthriti s, left knee Anh Espinal PA-C 03/03/2021 M17.12 Unilateral primary osteoarthriti s, left knee Anh Espinal PA-C 03/03/2021 M23.204 Derangement of unspe cified medial meniscus due to old tear or injury, left knee Anh Espinal PA-C Plan of Treatment 07/07/2021 - Anh Espinal PA-C* M17.12 Unilateral primary osteoarthritis, left knee* Follow up:* 3 months with [facility] for lt knee re-check Functional Status Description No Information Available Mental Status Description No Information Available Referrals Description No Information Available
--- OUTSIDE RECORDS SUMMARY | 2021-09-17 07:02 | CCD | Continuity of Care Document ---
Author Author Kirill ESPINAL PA-C Organization Unknown Address [address] [place] [address] Phone [phone] Problems Active Problems Provider Date Type 2 diabetes mellitus LESLI Dewitt Onset: 2018 Essential hypertension LESLI Dewitt Onset: 04/22/20 19 Pure hypercholesterolemia LESLI Dewitt Onset: 04/22 Social History Type Date Description Comments Sex Unknown ETOH Use Denies alcohol use Tobacco Use Start: Unknown End: Unknown Patient is a former smoker Allergies, Adverse Reactions, Alerts Description No Known Drug Allergies Medications Active Medications SIG Qnty Indications Ordering [...] Available Procedures Date Code Description Status 07/07/2021 47585 Office/Outpatient Established Mo d MDM 30-39 Min Completed 07/07/2021 66198 X-Ray Knee Complete W/Obliques & Tunnel And/Or Standing Views Completed 07/07/2021 08639 Inject/Drain Joint/Bursa Major C ompleted 03/03/2021 41493 Office/Outpatient Established Mo d MDM 30-39 Min Completed 03/03/2021 40222 Inject/Drain Joint/Bursa Major C ompleted Medical Devices Description No Information Available Encounters Type Date Location Provider Dx Diagnosis Office Visit 07/07/2021 3:15p Lawlerjalyn Espinal PA-C M1 7.12 Unilateral primary osteoarthritis, left knee M23.204 Derang of unsp medial menisc us due to old tear/inj, l knee Office Visit 03/03/2021 3:45p Lawler Anh Espinal PA-C M1 7.12 Unilateral primary osteoarthritis, left knee M23.204 Derang of unsp medial menisc us due to old tear/inj, l knee Assessments Date Code Description Provider 07/07/2021 M17.12 Unilateral primary osteoarthriti s, left knee Anh Espinal PA-C 07/07/2021 M23.204 Derangement of unspe cified medial meniscus due to old tear or injury, left knee Anh Espinal PA-C 03/03/2021 M17.12 Unilateral primary osteoarthriti s, left knee Anh Espinal PA-C 03/03/2021 M23.204 Derangement of unspe cified medial meniscus due to old tear or injury, left knee Anh Espinal PA-C Plan of Treatment 07/07/2021 - Anh Espinal PA-C* M17.12 Unilateral primary osteoarthritis, left knee* Follow up:* 3 months with [facility] for lt knee re-check * M23.204 Derangement of unspecified medial meniscus due to old tear or injury, left knee Functional Status Description No Information Available Mental Status Description No Information Available Referrals Description No Information Available
--- OUTSIDE RECORDS SUMMARY | 2021-09-17 07:02 | CCD ---
Author Author [facility] Organization [facility] Address Unknown Phone Unavailable Care Team Providers Care Senior Accounts Payable Clerk Name Role Phone Eleuterio Esquivel Unavailable PROBLEMS Type Condition ICD9-CM Code [id number] Code Onset Dates Condition S tatus W/U Status Risk SNOMED Code Notes Problem Hypertension I10 Active confirmed [id number] His blood pressure is reasonably controlled in the office, on quinapril, carvedilol and Lasix. I switched his atenolol to carvedilol because of more elevated blood pressures in November 2015. He is advised to continue to monitor home readings. Problem Glaucoma H40.9 Active confirmed [id number] On Lumigan as of 10/2014. He however has since stopped it. He saw his eye doctor in January 2019 and 2019 and had normal eye pressures off medications. Problem Testicular hypofunction E29.1 Active confirmed [id number] Confirmed in March and June 2014 and Androgel started June 2014, and a repeat testosterone level on therapy was 579 in 10/2014. He did not find it to be beneficial, even with a retrial in March 2016. Testosterone level in March 2016 off replacement was 167 ng/dL. In July 2016, back on replacement, his level was 375. He stopped using AndroGel because of lack of benefit. Problem Other chcf (current) drug therapy Z79.899 A ctive confirmed [id number] Problem Osteoarthritis M19.90 Active confirmed 51283 [id number] He was on Cymbalta therapy from May 2011 until mid 2011. Due to fatigue and arthralgias, we tried Citalopram as of 04/2013 instead. This was not as effective and we restarted Cymbalta since it went generic, in September 2013 and there has been little benefit. He in the past requested a higher dose but I am not comfortable with that. He has been taking meloxicam since Fall 2014 instead of gjcy-dul-fbhoivo nonsteroidal anti-inflammatory drugs and also acetaminophen with some relief. He is no longer on Cymbalta. He has had his left knee injected with cortisone and Euflexxa multiple times since April 2019. Problem Erectile dysfunction N52.9 Active confirmed [id number] Cialis, Viagra and Levitra were not effective. He has a history of androgen deficiency confirmed in March and June 2014--I started him on AndroGel. He found no benefit. We discussed MUSE in 10/2014, and Staxyn was trialed then again without benefit. His testosterone level was confirmed to be low and he started AndroGel again as of March 2016, with a documented therapeutic testosterone level as of 2015. At this point he is not using his AndroGel. He has been using Cialis again. He may need urology referral for alternative options. Problem Type 2 diabetes mellitus with peripheral neuropathy E11.42 Active confirmed [id number] On Victoza, glyburid e, metformin, and Invokana, all at maximum doses. Actos was stopped in April 2013. Last HgbA1c is improved since he has had less dietary indiscretion, at 7.5% in June 2021, versus 8.9% in February 2021, 9.3% in September 2020, 7.8% in May 2020, 7.9% in November 2019, 8.2% in July 2019.. It has exceeded 11-14% in the past. He had diabetic teaching in 2008. His urine microalbumin was over 120 mcg per milligram of creatinine in November 2015 and back down to normal in March 2016, July 2017, July 2018, July 2019, September 2020, but mildly elevated in June 2021; he is on an TRACEY inhibitor nevertheless. Last eye exam was in 2019. He has foot neuropathy and was started on nortriptyline in June 2020, with great benefit. He is continuing to work on diet and exercise rather than intensify his diabetes medication. 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 Problem Heart murmur R01.1 Active confirmed 5971268 6 He has a soft heart murmur which is likely aortic, and transmits to the left carotid. I do not think he has a bruit. We discussed an echocardiogram which he would like to defer until later in 2020. USPSTF recommendations are not to screen for carotid artery disease in asymptomatic individuals. Problem Coronary artery disease I25.10 Active confirmed [id number] Had right coronary artery stent placed in 2001. Last stress test August 2006, next due p.r.n.symptoms; refer to the ISCHEMIA trial.Last LVEF 64% in August 2006. Has no angina. No CHF symptoms. No medication adjustments needed. On Aspirin, statin, TRACEY inhibitor, beta-allyn. It has been almost 20 years since his coronary artery procedure and I would deem him very stable from an occupational standpoint, as his risk factors are quite well controlled and he is on appropriate medication to reduce his risk of a further coronary occlusion. Problem Urinary urgency R39.15 Active confirmed [id number] 8002 We will start him on some Flomax as a trial. Problem Fatty liver K76.0 Active confirmed [id number] 7 There is a history of elevated liver function tests in the past. His liver function tests have normalized as of July 2017, except for a very mild AST elevation in January 2018, and these were mostly recently checked in June 2021. Problem History of adenomatous polyp of colon Z86.010 Ac tive confirmed [id number] As of 12/2013, and he had a negative colo noscopy in February 2017. He anticipates another colonoscopy in 2020. It was scheduled for May or June 2021 but his left hand infection caused this to be rescheduled. Problem Hypercholesterolemia E78.00 Active confirmed 04269745 He is on simvastatin 40 mg daily with optimal lipid control as of February 2021. Problem Claudication I73.9 Active confirmed 1463739 6 He describes claudication symptoms. He has borderline pulses by examination and his vascular studies in 2018 were not terribly remarkable for severe disease. 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 Problem Obesity (BMI 30.0-34.9) E66.9 Active confirmed [id number] He has lost weight with his recent hospitalization in May 2021. ALLERGIES No Known Allergies ENCOUNTERS from 1955 to 2021-07-03 Encounter Location Date Provider Diagnosis [place] [id number] [facility] [phone] [place] [address] 07 Jun, 2021 Eleuterio Sierra Cellulitis of finger of left hand L03.012 ; Type 2 diabetes mellitus with peripheral neuropathy E11.42 ; Hypercholesterolemia E78.00 ; Hypertension I10 ; Osteoarthritis M19.90 ; Coronary artery disease I25.10 ; Fatty liver K76.0 ; Erectile dysfunction N52.9 ; Testicular hypofunction E29.1 ; History of adenomatous polyp of colon Z86.010 ; Claudication I73.9 ; Heart murmur R01.1 ; Obesity (BMI 30.0-34.9) E66.9 and 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 Z79.899 IMMUNIZATIONS Vaccine Route Administration Date Status COVID-19 dose #2 given elsewhere Unspecified Unknown February 15, 2021 Administered COVID-19 dose #1 given elsewhere Unspecified Unknown Jan Administered Influenza Pharmacy Given Unknown Aug 29, 2020 Adminis tered Influenza Pharmacy Given Unknown Aug 28, 2019 Adminis tered Zoster 50mcg/0.5mL Shingrix Unknown January 09, 2021 Admi nistered Zoster 50mcg/0.5mL Shingrix Unknown Aug 29, 2020 Admi nistered Influenza 6mo & up Fluzone Unknown Aug 09, 2016 Refus ed Influenza 6mo & up Fluzone Unknown Jul 18, 2011 Admin istered SOCIAL HISTORY Tobacco Use: Social History Observation Description Date Details (start date - stop date) Never Smoker Sex Assigned At : Social History Observation Description Sex Assigned At Unknown Audit Question Answer Notes Total Score: 0 Interpretation: Alcohol Education Language: Question Answer Notes Languages spoken: Gabonese Lutheran: Question Answer Notes Lutheran No taoism beliefs that would impact health care. Domestic Violence: Question Answer Notes Status: Sexual Hx: Question Answer Notes Had sex in the last 12 months (vaginal, oral, or anal)? Yes Have you ever had an STD? No with Women only Drug and Alcohol Question Answer Notes Total Score: 0 Interpretation: No problems reported BMI Care Goal Follow-Up Question Answer Notes Above Normal BMI Follow-Up Dietary management educatio n, guidance, and counseling Tobacco Use: Question Answer Notes Are you a: never smoker REASON FOR REFERRAL No Information VITAL SIGNS Weight 188 lbs Jun, Weight-kg 85.28 kg Jun, Height 66 in Jun, BMI 30.34 kg/m2 Jun, Heart Rate 78 /min Jun, Respiratory Rate 18 /min Jun, Temperature 97.8 degrees Fahrenheit Jun, Oximetry 98 Jun, Blood pressure systolic 142 mm Hg Jun, Blood pressure diastolic 78 mm Hg Jun, MEDICATIONS Medication SIG (Take, Route, Frequency, Duration) Notes Start Da te End Date Status Invokana 300 MG 1 tablet Orally Once a day for 30 Active Potassium Gluconate 595 MG 1 tablet Orally Once a day Active Mupirocin 2 % thin layer to left great toe Externally Three times a day for 7 day(s) Jan, Not-Taking Folic Acid 1 mg 1 tablet Orally Once a day for 30 Active Meloxicam 15 MG 1 tablet Orally Once a day for 30 Active metFORMIN HCl ER 750 MG 3 tablets with evening meal Orally Once a day for 30 Active Pen [place] 12/29" 31G X 5 MM as directed subcutaneousl y. DX: E11.9 daily with victoza for 90 Active Sildenafil Citrate 100 MG 1/2-1 tablet Orally Once a day as need ed Dec, Active Simvastatin 40 MG 1 tablet in the evening Orally Once a day for 30 Da ys Active Lasix 80 MG 1/2 tab Orally Once a day for 30 Active Nortriptyline HCl 25 MG 1 capsule Orally Once a day at hs for 30 day(s) Sep, Active Blood Glucose Test _ Fo GE Glucose monitoring Sys tem In Vitro, DX: E11.9 Twice daily and as needed for 90 day(s) Mar, Active Victoza 18 MG/3ML as directed Subcutaneous once a week for 30 Da ys Dec, Active Clotrimazole-Betamethasone 1-0.05 % 1 application to g roin Externally Twice a day as needed for 30 days Oct, Active Lancets - as directed DX: E11.9 2-3 times a day for 90 day(s) Sep, Active Aspirin 325 MG 1 tablet Orally Once a day Active GE100 Lancet Device 1 device Dx : E11.9 twice daily Dec Active Quinapril HCl 40 mg 2 tablets Orally Once a day for 30 Active glyBURIDE 5 MG 2 tablets Orally Twice a day for 30 Active Carvedilol 25 mg 1 tab with food Orally twice daily for 30 Active Nitroglycerin 0.4 MG 1 sl tablet Sublingual every 5 min for up to 3 doses if needed for chest pain for 30 days Active Mupirocin 2 % 1 application Externally Two times a day to left long finger for 14 days Jun, Active Omeprazole 40 MG 1 cap orally Daily for 30 Active PROCEDURES No Information RESULTS No Results REASON FOR VISIT Keegan Follow up-Admitted 06/12-06/16/2021; Cellulitis of left long finger , [facility] ED on 06/10 and 06/11/2021 for swollen left hand MEDICAL (GENERAL) HISTORY Type Description Date Medical History Type 2 diabetes mellitus with peripheral neuropathy Medical History Hypercholesterolemia Medical History Fatty liver Medical History Hypertension Medical History Osteoarthritis Medical History Coronary artery disease Medical History Erectile dysfunction Medical History Testicular hypofunction Medical History Glaucoma Medical History History of adenomatous polyp of colon Medical History Claudication Surgical History appendectomy 1960 Surgical History umbilical hernia repair Surgical History Colonoscopy 01/13/2014 Surgical History Colonoscopy 02/2017 Hospitalization History [facility] left bicep head 11/2017 Hospitalization History [facility] ED-Swollen left hand 06/10/2021 Hospitalization History [facility] ED-Swollen left hand 06/11/2021 Hospitalization History [facility]-Cellulitis of left l jackie finger 06/11- Goals Section No Information Health Concerns No Information MEDICAL EQUIPMENT No Information MENTAL STATUS No Information FUNCTIONAL STATUS No Information ASSESSMENTS Encounter Date Diagnosis Assessment Notes Treatment Notes Treatm ent Clinical Notes Jun, Cellulitis of finger of left hand (ICD-1 0 - L03.012) He was just hospitalized for a significant infection of his left long finger. MRSA was cultured. He was on intravenous antibiotics, likely vancomycin, and is completing a course of Bactrim. Topical mupirocin is recommended. Jun, Type 2 diabetes mellitus wit h peripheral neuropathy (ICD-10 - E11.42) On Victoza, glyburide, metformin, and In vokana, all at maximum doses. Actos was stopped in April 2013. Last HgbA1c is improved since he has had less dietary indiscretion, at 7.5% in June 2021, versus 8.9% in February 2021, 9.3% in September 2020, 7.8% in May 2020, 7.9% in November 2019, 8.2% in July 2019.. It has exceeded 11-14% in the past. He had diabetic teaching in 2008. His urine microalbumin was over 120 mcg per milligram of creatinine in November 2015 and back down to normal in March 2016, July 2017, July 2018, July 2019, September 2020, but mildly elevated in June 2021; he is on an TRACEY inhibitor nevertheless. Last eye exam was in 2019. He has foot neuropathy and was started on nortriptyline in June 2020, with great benefit. He is continuing to work on diet and exercise rather than intensify his diabetes medication. 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 Jun, Hypercholesterolemia (ICD-10 - E78.00) Bill lua is on simvastatin 40 mg daily with optimal lipid control as of February 2021. Jun, Hypertension (ICD-10 - I10) His blood pr essure is reasonably controlled in the office, on quinapril, carvedilol and Lasix. I switched his atenolol to carvedilol because of more elevated blood pressures in November 2015. He is advised to continue to monitor home readings. Jun, Osteoarthritis (ICD-10 - M19.90) He was on Cymbalta therapy from May 2011 until 2011. Due to fatigue and arthralgias, we tried Citalopram as of 04/2013 instead. This was not as effective and we restarted Cymbalta since it went generic, in September 2013 and there has been little benefit. He in the past requested a higher dose but I am not comfortable with that. He has been taking meloxicam since Fall 2014 instead of cuen-eeg-cboxrtk nonsteroidal anti- inflammatory drugs and also acetaminophen with some relief. He is no longer on Cymbalta. He has had his left knee injected with cortisone and Euflexxa multiple times since April 2019. Jun, Coronary artery disease (ICD-10 - I25.10 ) Had right coronary artery stent placed in 2001. Last stress test August 2006, next due p.r.n.symptoms; refer to the ISCHEMIA trial.Last LVEF 64% in August 2006. Has no angina. No CHF symptoms. No medication adjustments needed. On Aspirin, statin, TRACEY inhibitor, beta-allyn. It has been almost 20 years since his coronary artery procedure and I would deem him very stable from an occupational standpoint, as his risk factors are quite well controlled and he is on appropriate medication to reduce his risk of a further coronary occlusion. Jun, Fatty liver (ICD-10 - K76.0) There is a history of elevated liver function tests in the past. His liver function tests have normalized as of July 2017, except for a very mild AST elevation in January 2018, and these were mostly recently checked in June 2021. Jun, Erectile dysfunction (ICD-10 - N52.9) Ci wanda, Viagra and Levitra were not effective. He has a history of androgen deficiency confirmed in March and June 2014--I started him on AndroGel. He found no benefit. We discussed MUSE in 10/2014, and Staxyn was trialed then again without benefit. His testosterone level was confirmed to be low and he started AndroGel again as of March 2016, with a documented therapeutic testosterone level as of July 2016. At this point he is not using his AndroGel. He has been using Cialis again. He may need urology referral for alternative options. Jun, Testicular hypofunction (ICD-10 - E29.1) Confirmed in March and June 2014 and Androgel started June 2014, and a repeat testosterone level on therapy was 579 in 10/2014. He did not find it to be beneficial, even with a retrial in March 2016. Testosterone level in March 2016 off replacement was 167 ng/dL. In July 2016, back on replacement, his level was 375. He stopped using AndroGel because of lack of benefit. Jun, History of adenomatous polyp of colon (I CD-10 - Z86.010) As of 12/2013, and he had a negative colonoscopy in February 2017. He anticipates another colonoscopy in 2020. It was scheduled for May or June 2021 but his left hand infection caused this to be rescheduled. Jun, Claudication (ICD-10 - I73.9) He describ es claudication symptoms. He has borderline pulses by examination and his vascular studies in 2018 were not terribly remarkable for severe disease. 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 Jun, Heart murmur (ICD-10 - R01.1) He has a s oft heart murmur which is likely aortic, and transmits to the left carotid. I do not think he has a bruit. We discussed an echocardiogram which he would like to defer until later in 2020. USPSTF recommendations are not to screen for carotid artery disease in asymptomatic individuals. Jun, Obesity (BMI 30.0-34.9) (ICD-10 - E66.9) He has lost weight with his recent hospitalization in May 2021. Jun, Other chcf (current) drug therapy (ICD-10 - Z79.899) PLAN OF TREATMENT Medication Medication Name Sig Start Date Stop Date Mupirocin 2 % 1 application Externally Two times a day to left long finger for 14 days Jun, Clotrimazole-Betamethasone 1-0.05 % 1 application to g roin Externally Twice a day as needed for 30 days Oct, Victoza 18 MG/3ML as directed Subcutaneous once a week for 30 Da ys Dec, Future Test Test Name Order Date HEMOGLOBIN A1c 20211220 MICROALBUMIN RANDOM 20211220 MAGNESIUM LEVEL 20211220 Comprehensive Metabolic Profile (CMP) 20211220 LIPID PANEL (CARDIAC RISK) 20211220 CBC with Differential 20211220 TSH 20211220 Next Appt Details 6 Months Reason: Provider Name:Eleuterio Esquivel, 2021-12-21 04 :00:00 PM, [address] [facility], , [place], [address], Insurance Providers Payer Name Payer Address Payer Phone Insured Name Patient Relati onship to Insured Coverage Start Date Coverage End Date [facility] [id number] [facility] [id number] LEESA DALTON self
--- OUTSIDE RECORDS SUMMARY | 2021-09-17 07:02 | CCD ---
Author Author [facility] Organization [facility] [employer] Address Unknown Phone Unavailable Care Team Providers Care Acting Teacher Name Role Phone Eleuterio Esquivel Unavailable PROBLEMS Type Condition ICD9-CM Code [id number] Code Onset Dates Condition S tatus W/U Status Risk SNOMED Code Notes Problem Hypertension I10 Active confirmed 4736001 3 His blood pressure is reasonably controlled in the office, on quinapril, carvedilol and Lasix. I switched his atenolol to carvedilol because of more elevated blood pressures in November 2015. He is advised to continue to monitor home readings. Problem Glaucoma H40.9 Active confirmed 86549589 On Lumigan as of 10/2014. He however has since stopped it. He saw his eye doctor in January 2019 and 2019 and had normal eye pressures off medications. Problem Testicular hypofunction E29.1 Active confirmed [id number] Confirmed in March and June 2014 and [...] because of lack of benefit. Problem Other custodial (current) drug therapy Z79.899 A ctive confirmed 611650082 Problem Osteoarthritis M19.90 Active confirmed 73813 5007 He was on Cymbalta therapy from May [...] taking meloxicam since Fall 2014 instead of nnsc-xia-lymgwry nonsteroidal anti-inflammatory drugs and also acetaminophen with some relief. He is no longer on Cymbalta. He has had his left knee injected with cortisone and Euflexxa multiple times since April 2019. Problem Erectile dysfunction N52.9 Active confirmed [id number] Cialis, Viagra and Levitra were not effective. [...] mellitus with peripheral neuropathy E11.42 Active confirmed [id number] On Victoza, glyburid e, metformin, and Invokana, [...] license. Problem Heart murmur R01.1 Active confirmed 4132136 6 He has a soft heart murmur which is likely aortic, and transmits to the left carotid. I do not think he has a bruit. We discussed an echocardiogram which he would like to defer until later in 2020. USPSTF recommendations are not to screen for carotid artery disease in asymptomatic individuals. Problem Coronary artery disease I25.10 Active confirmed 30464194 Had right coronary artery stent placed in [...] occlusion. Problem Urinary urgency R39.15 Active confirmed 5688 8002 We will start him on some Flomax as a trial. Problem Fatty liver K76.0 Active confirmed 10770728 7 There is a history of elevated liver function tests in the past. His liver function tests have normalized as of July 2017, except for a very mild AST elevation in January 2018, and these were mostly recently checked in June 2021. Problem History of adenomatous polyp of colon Z86.010 Ac tive confirmed 791964340 As of 12/2013, and he had a negative colo noscopy in February 2017. He anticipates another colonoscopy in 2020. It was scheduled for May or June 2021 but his left hand infection caused this to be rescheduled. Problem Hypercholesterolemia E78.00 Active confirmed 82378006 He is on simvastatin 40 mg daily with optimal lipid control as of February 2021. Problem Claudication I73.9 Active confirmed 2833621 6 He describes claudication symptoms. He has borderline pulses by examination and his vascular studies in 2018 were not terribly remarkable for severe disease. 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 Problem Obesity (BMI 30.0-34.9) E66.9 Active confirmed [id number] He has lost weight with his recent hospitalization in May 2021. ALLERGIES No Known Allergies ENCOUNTERS from 1955 to 2021-06-23 Encounter Location Date Provider Diagnosis [place] [id number] [facility] [phone] [place] [address] Jun, [facility] Vaccine Route Administration Date Status COVID-19 dose [...] Education Language: Question Answer Notes Languages spoken: Azerbaijani Oriental Orthodox: Question Answer Notes Oriental Orthodox No restorationism beliefs that would impact health care. Domestic [...] REASON FOR REFERRAL No Information VITAL SIGNS No information MEDICATIONS Medication SIG (Take, Route, Frequency, Duration) Notes Start Da te End Date Status metFORMIN HCl ER 750 MG 3 tablets with evening meal Orally Once a day for 30 Active Invokana 300 MG 1 tablet Orally Once a day for 30 Active Mupirocin 2 % thin layer to left great toe Externally Three times a day for 7 day(s) Jan, Not-Taking Folic Acid 1 mg 1 tablet Orally Once a day for 30 Active Meloxicam 15 MG 1 tablet Orally Once a day for 30 Active Victoza 18 MG/3ML as directed Subcutaneous once daily 09 M 2020 Active Pen [place] 3/16" 31G X 5 MM as directed subcutaneousl [...] at hs for 30 day(s) Sep, Active Quinapril HCl 40 mg 2 tablets Orally Once a day for 30 Active Blood Glucose Test _ Fo GE Glucose monitoring Sys tem In Vitro, DX: E11.9 Twice daily and as needed for 90 day(s) Mar, Active Clotrimazole-Betamethasone 1-0.05 % 1 application to g roin Externally Twice a day as needed for 30 days Oct, Active Omeprazole 40 MG 1 cap orally Daily for 30 Active Aspirin 325 MG 1 tablet Orally Once a day Active GE100 Lancet Device 1 device Dx : E11.9 twice daily Dec Active Lancets - as directed DX: E11.9 2-3 times a day for 90 day(s) Sep, Active glyBURIDE 5 MG 2 tablets Orally [...] long finger for 14 days Jun, Active Potassium Gluconate 595 MG 1 tablet Orally Once a day Active PROCEDURES No Information RESULTS No Results REASON FOR VISIT swelling left middle finger MEDICAL (GENERAL) HISTORY Type Description Date Medical [...] UC-ruptured left bicep head 11/2017 Hospitalization History [facility]-Swollen left hand 06/10/2021 Hospitalization History [facility]-Swollen left hand 06/11/2021 Hospitalization History [facility]-Cellulitis of left l jackie finger 06/11- Goals Section No Information Health Concerns No Information MEDICAL EQUIPMENT No Information MENTAL STATUS No Information FUNCTIONAL STATUS No Information ASSESSMENTS No Information PLAN OF TREATMENT Medication Medication Name Sig Start Date Stop Date Mupirocin 2 % 1 application Externally Two times a day to left long finger for 14 days Jun, Clotrimazole-Betamethasone 1-0.05 % 1 application to g roin Externally Twice a day as needed for 30 days Oct, Next Appt Details Provider Name:Eleuterio Esquivel, 2021-12-21 04 :00:00 PM, [address] [facility], , [place], [address], Insurance Providers Payer Name Payer Address Payer Phone Insured Name Patient Relati onship to Insured Coverage Start Date Coverage End Date [facility] [id number] [facility] [phone] LEESA DALTON self
--- OUTSIDE RECORDS SUMMARY | 2021-09-17 07:02 | CCD ---
Author Author [facility] Organization [facility] [employer] Address Unknown Phone Unavailable Care Team Providers Care Mail Superintendent Name Role Phone Donnie Herrera Unavailable PROBLEMS Type Condition ICD9-CM Code [id number] Code Onset Dates Condition S tatus W/U Status Risk SNOMED Code Notes Problem Hypertension I10 Active confirmed [id number] 3 His blood pressure is reasonably controlled in the office, on quinapril, carvedilol and Lasix. I switched his atenolol to carvedilol because of more elevated blood pressures in November 2015. He is advised to continue to monitor home readings. Problem Glaucoma H40.9 Active confirmed 48105470 On Lumigan as of 10/2014. He however has since stopped it. He saw his eye doctor in January 2019 and 2019 and had normal eye pressures off medications. Problem Testicular hypofunction E29.1 Active confirmed 887057913 Confirmed in March and June 2014 and [...] because of lack of benefit. 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 He is no longer on Cymbalta. He has had his left knee injected with cortisone and Euflexxa multiple times since April 2019. Problem Erectile dysfunction N52.9 Active confirmed 691003547 Cialis, Viagra and Levitra were not effective. [...] mellitus with peripheral neuropathy E11.42 Active confirmed [id number] On Victoza, glyburid e, metformin, and Invokana, [...] license. Problem Heart murmur R01.1 Active confirmed 0044547 6 He has a soft heart murmur which is likely aortic, and transmits to the left carotid. I do not think he has a bruit. We discussed an echocardiogram which he would like to defer until later in 2020. USPSTF recommendations are not to screen for carotid artery disease in asymptomatic individuals. Problem Coronary artery disease I25.10 Active confirmed 34223151 Had right coronary artery stent placed in [...] occlusion. Problem Urinary urgency R39.15 Active confirmed 5048 8002 We will start him on some Flomax as a trial. Problem Fatty liver K76.0 Active confirmed 73182753 7 There is a history of elevated liver function tests in the past. His liver function tests have normalized as of July 2017, except for a very mild AST elevation in January 2018, and these were mostly recently checked in June 2021. Problem History of adenomatous polyp of colon Z86.010 Ac tive confirmed 424082154 As of 12/2013, and he had a negative colo noscopy in February 2017. He anticipates another colonoscopy in 2020. It was scheduled for May or June 2021 but his left hand infection caused this to be rescheduled. Problem Hypercholesterolemia E78.00 Active confirmed 76508187 He is on simvastatin 40 mg daily with optimal lipid control as of February 2021. Problem Claudication I73.9 Active confirmed 9328752 6 He describes claudication symptoms. He has borderline pulses by examination and his vascular studies in 2018 were not terribly remarkable for severe disease. 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 Problem Obesity (BMI 30.0-34.9) E66.9 Active confirmed [id number] He has lost weight with his recent hospitalization in May 2021. ALLERGIES No Known Allergies ENCOUNTERS from 1955 to 2021-06-26 Encounter Location Date Provider Diagnosis [place] [id number] [facility] [phone] [place] [address] Jun, Donnie Herrera IMMUNIZATIONS Vaccine Route Administration Date Status COVID-19 [...] Education Language: Question Answer Notes Languages spoken: Yakut Church: Question Answer Notes Church No caodaism beliefs that would impact health care. Domestic [...] Once a day for 30 Active Pen [place] 12/29" 31G X 5 MM as directed [...] Information RESULTS No Results REASON FOR VISIT Victoza MEDICAL (GENERAL) HISTORY Type Description Date Medical [...] UC-ruptured left bicep head 11/2017 Hospitalization History [facility]-Swollen left hand 06/10/2021 Hospitalization History [facility]-Swollen left hand 06/11/2021 Hospitalization History [facility]-Cellulitis of left l jackie finger 06/11- [...] a week for 30 Da ys Dec, Next Appt Details Provider Name:Eleuterio Esquivel, 2021-12-21 04 :00:00 PM, [address] [place] [address], , [place], [address], Insurance Providers Payer Name Payer Address Payer Phone Insured Name Patient Relati onship to Insured Coverage Start Date Coverage End Date [facility] [address] [facility] [phone] LEESA DALTON self
--- OUTSIDE RECORDS SUMMARY | 2021-09-17 07:02 | CCD ---
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 I switched his atenolol to carvedilol because of more elevated blood pressures in November 2015. He is advised to continue to monitor home readings. Problem Glaucoma H40.9 Active confirmed 79307843 On Lumigan as of 10/2014. He however has since stopped it. He saw his eye doctor in January 2019 and 2019 and had normal eye pressures off medications. Problem Testicular hypofunction E29.1 Active confirmed 825837979 Confirmed in March and June 2014 and [...] because of lack of benefit. Problem Other snf (current) drug therapy Z79.899 A ctive confirmed 946032968 Problem Osteoarthritis M19.90 Active confirmed 59521 5001 He was on Cymbalta therapy from May [...] taking meloxicam since Fall 2014 instead of bqdz-eoq-clkcvna nonsteroidal anti-inflammatory drugs and also acetaminophen with some relief. He is no longer on Cymbalta. He has had his left knee injected with cortisone and Euflexxa multiple times since April 2019. Problem Erectile dysfunction N52.9 Active confirmed 472272726 Cialis, Viagra and Levitra were not effective. [...] mellitus with peripheral neuropathy E11.42 Active confirmed [id number] On Victoza, glyburid e, metformin, and Invokana, [...] license. Problem Heart murmur R01.1 Active confirmed 9946767 6 He has a soft heart murmur which is likely aortic, and transmits to the left carotid. I do not think he has a bruit. We discussed an echocardiogram which he would like to defer until later in 2020. USPSTF recommendations are not to screen for carotid artery disease in asymptomatic individuals. Problem Coronary artery disease I25.10 Active confirmed 68585236 Had right coronary artery stent placed in [...] occlusion. Problem Urinary urgency R39.15 Active confirmed 5408 8002 We will start him on some Flomax as a trial. Problem Fatty liver K76.0 Active confirmed 07394561 7 There is a history of elevated liver function tests in the past. His liver function tests have normalized as of July 2017, except for a very mild AST elevation in January 2018, and these were mostly recently checked in June 2021. Problem History of adenomatous polyp of colon Z86.010 Ac tive confirmed 367288857 As of 12/2013, and he had a negative colo noscopy in February 2017. He anticipates another colonoscopy in 2020. It was scheduled for May or June 2021 but his left hand infection caused this to be rescheduled. Problem Hypercholesterolemia E78.00 Active confirmed 25596956 He is on simvastatin 40 mg daily with optimal lipid control as of February 2021. Problem Claudication I73.9 Active confirmed 7003623 6 He describes claudication symptoms. He has borderline pulses by examination and his vascular studies in 2018 were not terribly remarkable for severe disease. 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 Problem Obesity (BMI 30.0-34.9) E66.9 Active confirmed [id number] He has lost weight with his recent hospitalization in May 2021. ALLERGIES No Known Allergies ENCOUNTERS from 1955 to 2021-08-10 Encounter Location Date Provider Diagnosis [place] [id number] [facility] [phone] [place] [address] Jul, [facility] Vaccine Route Administration Date Status COVID-19 [...] Education Language: Question Answer Notes Languages spoken: Burkinan Episcopalian: Question Answer Notes Episcopalian No nondenominational beliefs that would impact health care. Domestic [...] Orally Once a day for 30 Active Omeprazole 40 MG 1 cap orally Daily for 30 Active Mupirocin 2 % thin layer to left great toe Externally Three times a day for 7 day(s) Jan, Not-Taking Folic Acid 1 mg 1 tablet Orally Once a day for 30 Active GE100 Lancet Device 1 device Dx : E11.9 twice daily Dec Active metFORMIN HCl ER 750 MG 3 tablets with evening meal Orally Once a day for 30 Active Potassium Gluconate 595 MG 2 tablet Orally Once a day for 30 Days Active Sildenafil Citrate 100 MG 1/2-1 tablet Orally Once a day as need ed Dec, Active Simvastatin 40 MG 1 tablet in the evening Orally Once a day for 30 Da ys Active Lasix 80 MG 1/2 tab Orally Once a day for 30 Active Nortriptyline HCl 25 MG 1 capsule Orally Once a day at hs for 30 day(s) Sep, Active Victoza 18 MG/3ML as directed Subcutaneous once a week for 30 Da ys Dec, Active Meloxicam 15 MG 1 tablet Orally Once a day for 30 Active Pen [place] 3/16" 31G X 5 MM as directed subcutaneousl y. DX: E11.9 daily with victoza for 90 Active Quinapril HCl 40 mg 2 tablets Orally Once a day for 30 Active Aspirin 325 MG 1 tablet Orally Once a day Active Mupirocin 2 % 1 application Externally Two times a day to left long finger for 14 days Jun, Active Blood Glucose Test _ Fo GE Glucose monitoring Sys tem In Vitro, DX: E11.9 Twice daily and as needed for 90 day(s) Mar, Active glyBURIDE 5 MG 2 tablets Orally Twice a day for 30 Active Carvedilol 25 mg 1 tab with food Orally twice daily for 30 Active Nitroglycerin 0.4 MG 1 sl tablet Sublingual every 5 min for up to 3 doses if needed for chest pain for 30 days Active Clotrimazole-Betamethasone 1-0.05 % 1 application to g roin Externally Twice a day as needed for 30 days Oct, Active Lancets - as directed DX: E11.9 2-3 times a day for 90 day(s) Sep, Active PROCEDURES No Information RESULTS No Results REASON FOR VISIT refill-[facility] MEDICAL (GENERAL) HISTORY Type Description Date Medical [...] UC-ruptured left bicep head 11/2017 Hospitalization History [facility] ED-Swollen left hand 06/10/2021 Hospitalization History [facility]-Swollen left hand 06/11/2021 Hospitalization History [facility]-Cellulitis of left l jackie finger 06/11- Goals Section No Information Health Concerns No Information MEDICAL EQUIPMENT No Information MENTAL STATUS No Information FUNCTIONAL STATUS No Information ASSESSMENTS No Information PLAN OF TREATMENT Medication Medication Name Sig Start Date Stop Date Clotrimazole-Betamethasone 1-0.05 % 1 application to g roin Externally Twice a day as needed for 30 days Oct, Potassium Gluconate 595 MG 2 tablet Orally Once a day for 30 Day s Victoza 18 MG/3ML as directed Subcutaneous once a week for 30 Da ys Dec, Mupirocin 2 % 1 application Externally Two times a day to left long finger for 14 days Jun, Next Appt Details Provider Name:Eleuterio Esquivel, 2021-12-21 04 :00:00 PM, [address] [facility], , [place], [address], Insurance Providers Payer Name Payer Address Payer Phone Insured Name Patient Relati onship to Insured Coverage Start Date Coverage End Date [facility] [id number] [facility] [phone] LEESA DALTON self
--- OUTSIDE RECORDS SUMMARY | 2021-09-17 07:03 | CCD ---
Author Author [facility] Organization [facility] Address Unknown Phone Unavailable Care Team Providers Care Carpenter Assistant Name Role Phone JORI RUANO MD Unavailable Unavailable JORI RUANO MD Unavailable Unavailable JORI RUANO MD Unavailable Unavailable JORI RUANO MD Unavailable Unavailable JORI RUANO MD Unavailable Unavailable JORI RUANO MD Unavailable Unavailable JORI RUANO MD Unavailable Unavailable Kim BOSTON MD Unavailable Unavailable Kim BOSTON MD Unavailable Unavailable Kim BOSTON MD Unavailable Unavailable Kim BOSTON MD Unavailable Unavailable Kim BOSTON MD Unavailable Unavailable Kim BOSTON MD Unavailable Unavailable Kim BOSTON MD Unavailable Unavailable Kim BOSTON MD Unavailable Unavailable Kim BOSTON MD Unavailable Unavailable Kim BOSTON MD Unavailable Unavailable DE Kim GUERRERO MD Unavailable Unavailable DE Kim GUERRERO MD Unavailable Unavailable JORI RUANO MD Unavailable Unavailable JORI RUANO MD Unavailable Unavailable JORI RUANO MD Unavailable Unavailable JORI RUANO MD Unavailable Unavailable JORI RUANO MD Unavailable Unavailable JORI RUANO MD Unavailable Unavailable JORI RUANO MD Unavailable Unavailable Edward De La O MD Unavailable Unavailable RING, SHASHI AVILEZ MD Unavailable Unavailable RING, SHASHI AVILEZ MD Unavailable Unavailable RING, SHASHI AVILEZ MD Unavailable Unavailable RING, SHASHI AVILEZ MD Unavailable Unavailable RING, SHASHI AVILEZ MD Unavailable Unavailable RING, SHASHI AVILEZ MD Unavailable Unavailable RING, SHASHI AVILEZ MD Unavailable Unavailable RING, SHASHI AVILEZ MD Unavailable Unavailable RING, SHASHI AVILEZ MD Unavailable Unavailable RING, SHASHI AVILEZ MD Unavailable Unavailable RING, SHASHI AVILEZ MD Unavailable Unavailable RING, SHASHI AVILEZ MD Unavailable Unavailable RING, SHASHI AVILEZ MD Unavailable Unavailable RING, SHASHI AVILEZ MD Unavailable Unavailable RING, SHASHI AVILEZ MD Unavailable Unavailable RING, SHASHI AVILEZ MD Unavailable Unavailable RING, SHASHI AVILEZ MD Unavailable Unavailable RING, SHASHI AVILEZ MD Unavailable Unavailable RING, SHASHI AVILEZ MD Unavailable Unavailable RING, SHASHI AVILEZ MD Unavailable Unavailable RING, SHASHI AVILEZ MD Unavailable Unavailable RING, SHASHI AVILEZ MD Unavailable Unavailable RING, SHASHI AVILEZ MD Unavailable Unavailable RING, SHASHI AVILEZ MD Unavailable Unavailable RING, SHASHI AVILEZ MD Unavailable Unavailable RING, SHASHI AVILEZ MD Unavailable Unavailable RING, SHASHI AVILEZ MD Unavailable Unavailable RING, SHASHI AVILEZ MD Unavailable Unavailable RING, SHASHI AVILEZ MD Unavailable Unavailable RING, SHASHI AVILEZ MD Unavailable Unavailable RING, SHASHI AVILEZ MD Unavailable Unavailable RING, SHASHI AVILEZ MD Unavailable Unavailable RING, SHASHI AVILEZ MD Unavailable Unavailable RING, SHASHI AVILEZ MD Unavailable Unavailable RING, SHASHI AVILEZ MD Unavailable Unavailable RING, SHASHI AVILEZ MD Unavailable Unavailable RING, SHASHI AVILEZ MD Unavailable Unavailable RING, SHASHI AVILEZ MD Unavailable Unavailable RING, SHASHI AVILEZ MD Unavailable Unavailable RING, SHASHI AVILEZ MD Unavailable Unavailable RING, SHASHI AVILEZ MD Unavailable Unavailable RING, SHASHI AVILEZ MD Unavailable Unavailable RING, SHASHI AVILEZ MD Unavailable Unavailable RING, SHASHI AVILEZ MD Unavailable Unavailable RING, SHASHI AVILEZ MD Unavailable Unavailable RING, SHASHI AVILEZ MD Unavailable Unavailable RING, SHASHI AVILEZ MD Unavailable Unavailable RING, SHASHI AVILEZ MD Unavailable Unavailable RING, SHASHI AVILEZ MD Unavailable Unavailable RING, SHASHI AVILEZ MD Unavailable Unavailable RING, SHASHI AVILEZ MD Unavailable Unavailable RING, SHASHI AVILEZ MD Unavailable Unavailable RING, SHASHI AVILEZ MD Unavailable Unavailable RING, SHASHI AVILEZ MD Unavailable Unavailable RING, SHASHI AVILEZ MD Unavailable Unavailable RING, SHASHI AVILEZ MD Unavailable Unavailable RING, SHASHI AVILEZ MD Unavailable Unavailable RING, SHASHI AVILEZ MD Unavailable Unavailable RING, SHASHI AVILEZ MD Unavailable Unavailable RING, SHASHI AVILEZ MD Unavailable Unavailable RING, SHASHI AVILEZ MD Unavailable Unavailable RING, SHASHI AVILEZ MD Unavailable Unavailable RING, SHASHI AVILEZ MD Unavailable Unavailable RING, SHASHI AVILEZ MD Unavailable Unavailable RING, SHASHI AVILEZ MD Unavailable Unavailable RING, SHASHI AVILEZ MD Unavailable Unavailable RING, SHASHI AVILEZ MD Unavailable Unavailable RING, SHASHI AVILEZ MD Unavailable Unavailable PHYSICIAN, PHYSICIAN ER Unavailable Unavailable Espinal, M Barratt PA Unavailable Unavailable Espinal, M Barratt PA Unavailable Unavailable Espinal, M Barratt PA Unavailable Unavailable Espinal, M Barratt PA Unavailable Unavailable Espinal, M Barratt PA Unavailable Unavailable Espinal, M Barratt PA Unavailable Unavailable Espinal, M Barratt PA Unavailable Unavailable Espinal, M Barratt PA Unavailable Unavailable Espinal, M Barratt PA Unavailable Unavailable Espinal, M Barratt PA Unavailable Unavailable Espinal, M Barratt PA Unavailable Unavailable Espinal, M Barratt PA Unavailable Unavailable Espinal, M Barratt PA Unavailable Unavailable Espinal, M Barratt PA Unavailable Unavailable Espinal, M Barratt PA Unavailable Unavailable Espinal, M Barratt PA Unavailable Unavailable Espinal, M Barratt PA Unavailable Unavailable Espinal, M Barratt PA Unavailable Unavailable Espinal, M Barratt PA Unavailable Unavailable Espinal, M Barratt PA Unavailable Unavailable Espinal, M Barratt PA Unavailable Unavailable Espinal, M Barratt PA Unavailable Unavailable Espinal, M Barratt PA Unavailable Unavailable Espinal, M Barratt PA Unavailable Unavailable Espinal, M Barratt PA Unavailable Unavailable Espinal, M Barratt PA Unavailable Unavailable Espinal, M Barratt PA Unavailable Unavailable Espinal, M Barratt PA Unavailable Unavailable Espinal, M Barratt PA Unavailable Unavailable FRETWELL, L AZAR DO Unavailable Unavailable FRETWELL, L AZAR DO Unavailable Unavailable RING, SHASHI AVILEZ MD Unavailable Unavailable RING, SHASHI AVILEZ MD Unavailable Unavailable RING, SHASHI AVILEZ MD Unavailable Unavailable RING, SHASHI AVILEZ MD Unavailable Unavailable RING, SHASHI AVILEZ MD Unavailable Unavailable RING, SHASHI AVILEZ MD Unavailable Unavailable RING, SHASHI AVILEZ MD Unavailable Unavailable RING, SHASHI AVILEZ MD Unavailable Unavailable RING, SHASHI AVILEZ MD Unavailable Unavailable RING, SHASHI AVILEZ MD Unavailable Unavailable RING, SHASHI AVILEZ MD Unavailable Unavailable RING, SHASHI AVILEZ MD Unavailable Unavailable RING, SHASHI AVILEZ MD Unavailable Unavailable RING, SHASHI AVILEZ MD Unavailable Unavailable RING, SHASHI AVILEZ MD Unavailable Unavailable RING, SHASHI AVILEZ MD Unavailable Unavailable RING, SHASHI AVILEZ MD Unavailable Unavailable RING, SHASHI AVILEZ MD Unavailable Unavailable RING, SHASHI AVILEZ MD Unavailable Unavailable RING, SHASHI AVILEZ MD Unavailable Unavailable RING, SHASHI AVILEZ MD Unavailable Unavailable RING, SHASHI AVILEZ MD Unavailable Unavailable RING, SHASHI AVILEZ MD Unavailable Unavailable RING, SHASHI AVILEZ MD Unavailable Unavailable RING, SHASHI AVILEZ MD Unavailable Unavailable RING, SHASHI AVILEZ MD Unavailable Unavailable RING, SHASHI AVILEZ MD Unavailable Unavailable RING, SHASHI AVILEZ MD Unavailable Unavailable RING, SHASHI AVILEZ MD Unavailable Unavailable RING, SHASHI AVILEZ MD Unavailable Unavailable RING, SHASHI AVILEZ MD Unavailable Unavailable RING, SHASHI AVILEZ MD Unavailable Unavailable RING, SHASHI AVILEZ MD Unavailable Unavailable RING, SHASHI AVILEZ MD Unavailable Unavailable RING, SHASHI AVILEZ MD Unavailable Unavailable RING, SHASHI AVILEZ MD Unavailable Unavailable RING, SHASHI AVILEZ MD Unavailable Unavailable RING, SHASHI AVILEZ MD Unavailable Unavailable RING, SHASHI AVILEZ MD Unavailable Unavailable RING, SHASHI AVILEZ MD Unavailable Unavailable RING, SHASHI AVILEZ MD Unavailable Unavailable RING, SHASHI AVILEZ MD Unavailable Unavailable RING, SHASHI AVILEZ MD Unavailable Unavailable RING, SHASHI ELYN MD Unavailable Unavailable RING, SHASHI ELYN MD Unavailable Unavailable RING, SHASHI ELYN MD Unavailable Unavailable RING, SHASHI ELYN MD Unavailable Unavailable RING, SHASHI ELYN MD Unavailable Unavailable RING, SHASHI ELYN MD Unavailable Unavailable RING, SHASHI ELYN MD Unavailable Unavailable RING, SHASHI ELYN MD Unavailable Unavailable RING, SHASHI ELYN MD Unavailable Unavailable RING, SHASHI ELYN MD Unavailable Unavailable RING, SHASHI ELYN MD Unavailable Unavailable RING, SHASHI ELYN MD Unavailable Unavailable RING, SHASHI ELYN MD Unavailable Unavailable RING, SHASHI ELYN MD Unavailable Unavailable RING, SHASHI ELYN MD Unavailable Unavailable RING, SHASHI ELYN MD Unavailable Unavailable RING, SHASHI ELYN MD Unavailable Unavailable RING, SHASHI ELYN MD Unavailable Unavailable RING, SHASHI ELYN MD Unavailable Unavailable RING, SHASHI ELYN MD Unavailable Unavailable RING, SHASHI ELYN MD Unavailable Unavailable RING, SHASHI ELYN MD Unavailable Unavailable RING, SHASHI ELYN MD Unavailable Unavailable RING, SHASHI ELYN MD Unavailable Unavailable RING, SHASHI ELYN MD Unavailable Unavailable PHYSICIAN, ER Unavailable Unavailable Re-disclosure Warning The records that you are about to access may contain information from federally-assisted alcohol or drug abuse programs. If such information is present, then the following federally mandated warning applies: This information has been disclosed to you from records protected by federal confidentiality rules (42 CFR part 2). The federal rules prohibit you from making any further disclosure of this information unless further disclosure is expressly permitted by the written consent of the person to whom it pertains or as otherwise permitted by 42 CFR part 2. A general authorization for the release of medical or other information is NOT sufficient for this purpose. The Federal rules restrict any use of the information to criminally investigate or prosecute any alcohol or drug abuse patient.The records that you are about to access may contain highly sensitive health information, the redisclosure of which is protected by Article 27-F of the [facility] Public Health law. If you continue you may have access to information: Regarding HIV / AIDS; Provided by facilities licensed or operated by the [facility] Office of Mental Health; or Provided by the [facility] Office for People With Developmental Disabilities. If such information is present, then the following [facility] mandated warning applies: This information has been disclosed to you from confidential records which are protected by state law. State law prohibits you from making any further disclosure of this information without the specific written consent of the person to whom it pertains, or as otherwise permitted by law. Any unauthorized further disclosure in violation of state law may result in a fine or assisted sentence or both. A general authorization for the release of medical or other information is NOT sufficient authorization for further disc losure. Family History Family Member Name Family Member Gender Family Member Status Date o f Status Description Data Source(s) Unknown Unknown Problem MEDENT ([facility], ) Encounters Encounter Providers Location Date Indications Data Source(s ) Unknown [address] [facility] [address] 08/09/2021 12:00:00 AM EDT eCW1 ([facility]) Outpatient Attender: Anh BALLESTEROS Physical Therapy 03:15:00 PM EDT [facility] ([facility] ) Unknown [address] [facility] [place] [address] 06/25/2021 12:00:00 AM EDT eCW1 ([facility]) Outpatient [address] [facility] [place] [address] 06/22/2021 12:00:00 AM EDT eCW1 ([facility]) Unknown [address] [facility] [address] 06/17/2021 12:00:00 AM EDT eCW1 ([facility]) Recurring Patient Referrer: Kezia De La O MD 06/16/2021 03:19:49 PM EDT [facility] Inpatient Attender: JORI RUANO MDA ttender: FATMATA WILSON MDAttender: PATTI BOSTON MDAttender: AZAR AGUILERA DOAttender: ER PHYSICIANAdmitter: AZAR AGUILERA DO 06/12/2021 03:46:36 AM EDT [facility] Inpatient Attender: AZAR AGUILERA DOAttender: JORI RUANO MDAttender: FATMATA WILSON MDAttender: PATTI BOSTON MDAttender: ER PHYSICIANAdmitter: AZAR AGUILERA DO 06/12/2021 02:08:00 AM EDT - 06/16/2021 05:14:00 PM EDT LEFT UE INFECTION [facility] LEFT UE INFECTION Patient discharged. Unknown [address] [facility] [address] 06/10/2021 12:00:00 AM EDT eCW1 ([facility]) Outpatient Attender: Anh BALLESTEROS Physical Therapy 03:45:00 PM EDT [facility] ([facility]) Outpatient [address] [facility] [address] 02/17/2021 12:00:00 AM EDT eCW1 ([facility]) Outpatient [address] [facility] [address] 01/14/2021 12:00:00 AM EDT eCW1 [facility] Unknown [address] [facility] [address] 01/13/2021 12:00:00 AM EDT eCW1 ([facility]) Unknown [address] [facility] [address] 01/04/2021 12:00:00 AM EDT [facility] Unknown [address] [facility] [address] 12/22/2020 12:00:00 AM EST eCW1 ([facility]) Unknown [address] [facility] [address] 12/21/2020 12:00:00 AM EST eCW1 ([facility]) Outpatient Attender: Anh BALLESTEROS Physical Therapy 02:30:00 PM EST MED[facility] ([facility]) Office Visit, Est Pt., Level 4 PC [address] [place] [address] 10/20/2020 12:00:00 AM EST eCW1 ([facility]) Unknown [address] [facility] [address] 10/07/2020 12:00:00 AM EST eCW1 ([facility]) Office Visit Attender: Anh BALLESTEROS Physical Therapy 02:45:00 PM EST MED[facility] ([facility]) Office Visit Attender: Anh BALLESTEROS Physical Therapy 02:45:00 PM EST [facility] ([facility]) Unknown [address] [facility] [address] 09/21/2020 12:00:00 AM EST eCW1 ([facility]) Office Visit Attender: Anh BALLESTEROS Physical Therapy 02:15:00 PM EST [facility] ([facility]) Unknown [address] [facility] [address] 08/12/2020 12:00:00 AM EDT eCW1 ([facility]) Office Visit Attender: Anh BALLESTEROS Physical Therapy 08:30:00 AM EDT MED[facility] ([facility]) Immunizations Vaccine Date Status Description Data Source(s) COVID-19 VACCINE Moderna 09/05/2021 12:00:00 AM EST completed [facility] Vaccine Series Complete: YESThis Data wa s Submitted to [facility] Via [employer]. COVID-19 dose #2 given elsewhere Unspecified 02/15/2021 06:3 4:00 AM EDT completed eCW1 ([facility]) COVID-19 dose #2 given elsewhere Unspecified 02/15/2021 06:3 4:00 AM EDT completed eCW1 ([facility]) COVID-19 dose #2 given elsewhere Unspecified 02/15/2021 06:3 4:00 AM EDT completed eCW1 ([facility]) COVID-19 dose #2 given elsewhere Unspecified 02/15/2021 06:3 4:00 AM EDT completed eCW1 ([facility]) COVID-19 dose #2 given elsewhere Unspecified 02/15/2021 06:3 4:00 AM EDT completed eCW1 ([facility]) COVID-19 dose #2 given elsewhere Unspecified 02/15/2021 06:3 4:00 AM EDT completed eCW1 ([facility]) COVID-19 (Moderna), mRNA, LNP-S, PF, 100 mcg/0.5 mL do se 02/15/2021 12:00:00 AM EDT completed [facility] COVID-19 VACCINE Moderna 02/15/2021 12:00:00 AM EDT completed [facility] Vaccine Series Complete: YESThis Data wa s Submitted to [facility] Via [employer]. COVID-19 VACC,MRNA(MODERNA)/PF 02/15/2021 12:00:00 AM EDT completed [facility] COVID-19 dose #1 given elsewhere Unspecified 01/15/2021 06:3 4:00 AM EDT completed eCW1 ([facility]) COVID-19 dose #1 given elsewhere Unspecified 01/15/2021 06:3 4:00 AM EDT completed eCW1 ([facility]) COVID-19 dose #1 given elsewhere Unspecified 01/15/2021 06:3 4:00 AM EDT completed eCW1 ([facility]) COVID-19 dose #1 given elsewhere Unspecified 01/15/2021 06:3 4:00 AM EDT completed eCW1 ([facility]) COVID-19 dose #1 given elsewhere Unspecified 01/15/2021 06:3 4:00 AM EDT completed eCW1 ([facility]) COVID-19 dose #1 given elsewhere Unspecified 01/15/2021 06:3 4:00 AM EDT completed eCW1 ([facility]) COVID-19 (Moderna), mRNA, LNP-S, PF, 100 mcg/0.5 mL do se 01/15/2021 12:00:00 AM EDT completed [facility] COVID-19 VACCINE Moderna 01/15/2021 12:00:00 AM EDT completed [facility] Vaccine Series Complete: NOThis Data was Submitted to [facility] Via [employer]. COVID-19 VACCINE, MRNA-1273, LNP-S (MODERNA)/PF 01/15/2021 1 2:00:00 AM EDT completed [facility] Zoster 50mcg/0.5mL Shingrix 01/09/2021 08:16:00 AM EDT completed [facility] Zoster 50mcg/0.5mL Shingrix 01/09/2021 08:16:00 AM EDT completed [facility]CW1 [facility]) Zoster 50mcg/0.5mL Shingrix 01/09/2021 08:16:00 AM EDT completed [facility]CW1 [facility]) Zoster 50mcg/0.5mL Shingrix 01/09/2021 08:16:00 AM EDT completed [facility]CW1 [facility]) Zoster 50mcg/0.5mL Shingrix 01/09/2021 08:16:00 AM EDT completed [facility]CW1 [facility]) Zoster 50mcg/0.5mL Shingrix 01/09/2021 08:16:00 AM EDT completed [facility]CW1 [facility]) Zoster 50mcg/0.5mL Shingrix 01/09/2021 08:16:00 AM EDT completed [facility]CW1 [facility]) Zoster 50mcg/0.5mL Shingrix 01/09/2021 08:16:00 AM EDT completed [facility]CW1 [facility]) Zoster 50mcg/0.5mL Shingrix 01/09/2021 08:16:00 AM EDT completed [facility]CW1 [facility]) Zoster 50mcg/0.5mL Shingrix 01/09/2021 08:16:00 AM EDT completed [facility]CW1 [facility]) Zoster 50mcg/0.5mL Shingrix 01/09/2021 08:16:00 AM EDT completed [facility]) zoster recombinant ([employer], Lot # [id number]); Ad ministered 12/12/2020 12/12/2020 12:00:00 AM EST completed [facility] Zoster 50mcg/0.5mL Shingrix 08/29/2020 06:11:00 AM EST completed [facility]CW1 [facility]) Zoster 50mcg/0.5mL Shingrix 08/29/2020 06:11:00 AM EST completed eCW1 [facility]) Zoster 50mcg/0.5mL Shingrix 08/29/2020 06:11:00 AM EST completed [facility]CW1 [facility]) Zoster 50mcg/0.5mL Shingrix 08/29/2020 06:11:00 AM EST completed eCW1 [facility]) Zoster 50mcg/0.5mL Shingrix 08/29/2020 06:11:00 AM EST completed eCW1 [facility]) Zoster 50mcg/0.5mL Shingrix 08/29/2020 06:11:00 AM EST completed eCW1 [facility]) Zoster 50mcg/0.5mL Shingrix 08/29/2020 06:11:00 AM EST completed eCW1 [facility]) Zoster 50mcg/0.5mL Shingrix 08/29/2020 06:11:00 AM EST completed [facility]CW1 [facility]) Zoster 50mcg/0.5mL Shingrix 08/29/2020 06:11:00 AM EST completed [facility]CW1 [facility]) Zoster 50mcg/0.5mL Shingrix 08/29/2020 06:11:00 AM EST completed [facility]CW1 [facility]) Zoster 50mcg/0.5mL Shingrix 08/29/2020 06:11:00 AM EST completed [facility]CW1 [facility]) Zoster 50mcg/0.5mL (Shingrix) 08/29/2020 06:11:00 AM EST completed eCW1 [facility]) Zoster 50mcg/0.5mL (Shingrix) 08/29/2020 06:11:00 AM EST completed eCW1 [facility]) Zoster 50mcg/0.5mL (Shingrix) 08/29/2020 06:11:00 AM EST completed eCW1 [facility]) Zoster 50mcg/0.5mL (Shingrix) 08/29/2020 06:11:00 AM EST completed [facility]CW1 [facility]) IIV3. This is one of two codes replacing CVX 15, which is being retired. 08/29/2020 06:09:00 AM EST completed eCW1 ([facility]) IIV3. This is one of two codes replacing CVX 15, which is being retired. 08/29/2020 06:09:00 AM EST completed eCW1 ([facility]) IIV3. This is one of two codes replacing CVX 15, which is being retired. 08/29/2020 06:09:00 AM EST completed eCW1 ([facility]) IIV3. This is one of two codes replacing CVX 15, which is being retired. 08/29/2020 06:09:00 AM EST completed eCW1 ([facility]) IIV3. This is one of two codes replacing CVX 15, which is being retired. 08/29/2020 06:09:00 AM EST completed eCW1 ([facility]) IIV3. This is one of two codes replacing CVX 15, which is being retired. 08/29/2020 06:09:00 AM EST completed eCW1 ([facility]) IIV3. This is one of two codes replacing CVX 15, which is being retired. 08/29/2020 06:09:00 AM EST completed eCW1 ([facility]) IIV3. This is one of two codes replacing CVX 15, which is being retired. 08/29/2020 06:09:00 AM EST completed eCW1 ([facility]) IIV3. This is one of two codes replacing CVX 15, which is being retired. 08/29/2020 06:09:00 AM EST completed eCW1 ([facility]) IIV3. This is one of two codes replacing CVX 15, which is being retired. 08/29/2020 06:09:00 AM EST completed eCW1 ([facility]) IIV3. This is one of two codes replacing CVX 15, which is being retired. 08/29/2020 06:09:00 AM EST completed eCW1 ([facility]) IIV3. This is one of two codes replacing CVX 15, which is being retired. 08/29/2020 06:09:00 AM EST completed eCW1 ([facility]) IIV3. This is one of two codes replacing CVX 15, which is being retired. 08/29/2020 06:09:00 AM EST completed eCW1 ([facility]) IIV3. This is one of two codes replacing CVX 15, which is being retired. 08/29/2020 06:09:00 AM EST completed eCW1 ([facility]) IIV3. This is one of two codes replacing CVX 15, which is being retired. 08/29/2020 06:09:00 AM EST completed eCW1 ([facility]) influenza, high-dose, quadrivalent 08/29/2020 12:00:00 AM EST compl eted [facility] zoster recombinant ([employer], Lot # [id number]); Ad ministered 08/29/2020 08/29/2020 12:00:00 AM EST completed [facility] Medication Brand Name Start Date Product Form Dose Route Admi nistrative Instructions Pharmacy Instructions Status Indications Reaction Description Data Source(s) 100 mcg/0.5 mL 09/05/2021 12:00:00 AM EST suspension 0 INJECT DIRECTED (THIRD DOSE) INJECT DIRECTED (THIRD DOSE) SOLD: 09/05/2021 [facility] Mupirocin 0.02 MG/MG Topical Ointment Mupirocin 2 % Mupiroci n 2 % 06/22/2021 12:00:00 AM EDT 1.0 {application} active Mupirocin 2 % [facility] Mupirocin 0.02 MG/MG Topical Ointment Mupirocin 2 % Mupiroci n 2 % 06/22/2021 12:00:00 AM EDT 1.0 {application} active Mupirocin 2 % [facility]CW1 ([facility]) Mupirocin 0.02 MG/MG Topical Ointment Mupirocin 2 % Mupiroci n 2 % 06/22/2021 12:00:00 AM EDT 1.0 {application} active Mupirocin 2 % [facility]CW1 [facility]) Mupirocin 0.02 MG/MG Topical Ointment Mupirocin 2 % Mupiroci n 2 % 06/22/2021 12:00:00 AM EDT 1.0 {application} active Mupirocin 2 % eCW1 ([facility]) Magnesium Hydroxide 80 MG/ML Oral Suspension Milk Of Magnesi a 02/24/2021 12:00:00 AM EDT ORAL active M EDENT ([facility], ) POLYETHYLENE GLYCOL 3350 142 MG/ML Oral Solution [Miralax] M iralax 02/24/2021 12:00:00 AM EDT active M EDENT ([facility], ) Tamsulosin hydrochloride 0.4 MG Oral Capsule Tamsulosi n HCl 0.4 MG Tamsulosin HCl 0.4 MG 02/17/2021 12:00:00 AM EDT 1.0 {capsule} active Tamsulosin HCl 0.4 MG [facility] Tamsulosin hydrochloride 0.4 MG Oral Capsule Tamsulosi n HCl 0.4 MG Tamsulosin HCl 0.4 MG 02/17/2021 12:00:00 AM EDT 1.0 {capsule} active Tamsulosin HCl 0.4 MG [facility]CW1 [facility]) Mupirocin 0.02 MG/MG Topical Ointment Mupirocin 2 % Mupiroci n 2 % 01/14/2021 12:00:00 AM EDT active Mupiroci n 2 % [facility]CW[facility]) Mupirocin 0.02 MG/MG Topical Ointment Mupirocin 2 % Mupiroci n 2 % 01/14/2021 12:00:00 AM EDT suspended Mupir ocin 2 % [facility]CW[facility]) Mupirocin 0.02 MG/MG Topical Ointment Mupirocin 2 % Mupiroci n 2 % 01/14/2021 12:00:00 AM EDT suspended Mupir ocin 2 % [facility]CW[facility]) Mupirocin 0.02 MG/MG Topical Ointment Mupirocin 2 % Mupiroci n 2 % 01/14/2021 12:00:00 AM EDT suspended Mupir ocin 2 % [facility]CW1 [facility]) Mupirocin 0.02 MG/MG Topical Ointment Mupirocin 2 % Mupiroci n 2 % 01/14/2021 12:00:00 AM EDT suspended Mupir ocin 2 % eCW1 [facility]) Mupirocin 0.02 MG/MG Topical Ointment Mupirocin 2 % Mupiroci n 2 % 01/14/2021 12:00:00 AM EDT suspended Mupir ocin 2 % eCW1 ([facility]) Doxycycline Monohydrate 100 MG Oral Capsule Doxycycline Freestone hydrate 100 MG 01/14/2021 12:00:00 AM EDT 1.0 {capsule} active Doxycycline Monohydrate 100 MG eCW1 ([facility]) Mupirocin 0.02 MG/MG Topical Ointment Mupirocin 2 % Mupiroci n 2 % 01/14/2021 12:00:00 AM EDT suspended Mupir ocin 2 % eCW1 [facility]) sildenafil 100 MG Oral Tablet Sildenafil Citrate 100 M G Sildenafil Citrate 100 MG 01/04/2021 12:00:00 AM EDT active Sildenafil Citrate 100 MG eCW1 ([facility]) sildenafil 100 MG Oral Tablet Sildenafil Citrate 100 M G Sildenafil Citrate 100 MG 01/04/2021 12:00:00 AM EDT active Sildenafil Citrate 100 MG eCW1 ([facility]) sildenafil 100 MG Oral Tablet Sildenafil Citrate 100 M G Sildenafil Citrate 100 MG 01/04/2021 12:00:00 AM EDT active Sildenafil Citrate 100 MG eCW1 ([facility]) sildenafil 100 MG Oral Tablet Sildenafil Citrate 100 M G Sildenafil Citrate 100 MG 01/04/2021 12:00:00 AM EDT active Sildenafil Citrate 100 MG eCW1 ([facility]) sildenafil 100 MG Oral Tablet Sildenafil Citrate 100 M G Sildenafil Citrate 100 MG 01/04/2021 12:00:00 AM EDT active Sildenafil Citrate 100 MG eCW1 ([facility]) sildenafil 100 MG Oral Tablet Sildenafil Citrate 100 M G Sildenafil Citrate 100 MG 01/04/2021 12:00:00 AM EDT active Sildenafil Citrate 100 MG eCW1 ([facility]) sildenafil 100 MG Oral Tablet Sildenafil Citrate 100 M G Sildenafil Citrate 100 MG 01/04/2021 12:00:00 AM EDT active Sildenafil Citrate 100 MG eCW1 ([facility]) sildenafil 100 MG Oral Tablet Sildenafil Citrate 100 M G Sildenafil Citrate 100 MG 01/04/2021 12:00:00 AM EDT active Sildenafil Citrate 100 MG eCW1 ([facility]) sildenafil 100 MG Oral Tablet Sildenafil Citrate 100 M G Sildenafil Citrate 100 MG 01/04/2021 12:00:00 AM EDT active Sildenafil Citrate 100 MG eCW1 ([facility]) 3 ML liraglutide 6 MG/ML Pen Injector [Victoza] Victoz a 18 MG/3ML Victoza 18 MG/3ML 12/22/2020 12:00:00 AM EST active Victoza 18 MG/3ML eCW1 ([facility]) 3 ML liraglutide 6 MG/ML Pen Injector [Victoza] Victoz a 18 MG/3ML Victoza 18 MG/3ML 12/22/2020 12:00:00 AM EST active Victoza 18 MG/3ML eCW1 [facility]) 3 ML liraglutide 6 MG/ML Pen Injector [Victoza] Victoz a 18 MG/3ML Victoza 18 MG/3ML 12/22/2020 12:00:00 AM EST active Victoza 18 MG/3ML eCW1 [facility]) 3 ML liraglutide 6 MG/ML Pen Injector [Victoza] Victoz a 18 MG/3ML Victoza 18 MG/3ML 12/22/2020 12:00:00 AM EST active Victoza 18 MG/3ML eCW1 [facility]) 3 ML liraglutide 6 MG/ML Pen Injector [Victoza] Victoz a 18 MG/3ML Victoza 18 MG/3ML 12/22/2020 12:00:00 AM EST active Victoza 18 MG/3ML eCW1 [facility]) 3 ML liraglutide 6 MG/ML Pen Injector [Victoza] Victoz a 18 MG/3ML Victoza 18 MG/3ML 12/22/2020 12:00:00 AM EST active Victoza 18 MG/3ML eCW1 [facility]) 3 ML liraglutide 6 MG/ML Pen Injector [Victoza] Victoz a 18 MG/3ML Victoza 18 MG/3ML 12/22/2020 12:00:00 AM EST active Victoza 18 MG/3ML eCW1 [facility]) 3 ML liraglutide 6 MG/ML Pen Injector [Victoza] Victoz a 18 MG/3ML Victoza 18 MG/3ML 12/22/2020 12:00:00 AM EST active Victoza 18 MG/3ML eCW1 [facility]) 3 ML liraglutide 6 MG/ML Pen Injector [Victoza] Victoz a 18 MG/3ML Victoza 18 MG/3ML 12/22/2020 12:00:00 AM EST active Victoza 18 MG/3ML eCW1 [facility]) 3 ML liraglutide 6 MG/ML Pen Injector [Victoza] Victoz a 18 MG/3ML Victoza 18 MG/3ML 12/22/2020 12:00:00 AM EST active Victoza 18 MG/3ML eCW1 [facility]) 3 ML liraglutide 6 MG/ML Pen Injector [Victoza] Victoz a 18 MG/3ML Victoza 18 MG/3ML 12/22/2020 12:00:00 AM EST active Victoza 18 MG/3ML eCW1 [facility]) 0.6 mg/0.1 mL (18 mg/3 mL) 12/21/2020 12:00:00 AM EST pen in jector 9 INJECT 1.8MG SUBCUTANEOUSLY ONCE DAILY INJECT 1.8MG SUBCUTANEOUSLY ONCE DAILY SOLD: 12/21/2020 [facility] Nortriptyline 25 MG Oral Capsule Nortriptyline HCl 25 MG Nortriptyline HCl 25 MG 10/07/2020 12:00:00 AM EST 1.0 {capsule} acti ve Nortriptyline HCl 25 MG eCW1 ([facility]) Nortriptyline 25 MG Oral Capsule Nortriptyline HCl 25 MG Nortriptyline HCl 25 MG 10/07/2020 12:00:00 AM EST 1.0 {capsule} acti ve Nortriptyline HCl 25 MG eCW1 ([facility]) Nortriptyline 25 MG Oral Capsule Nortriptyline HCl 25 MG Nortriptyline HCl 25 MG 10/07/2020 12:00:00 AM EST 1.0 {capsule} acti ve Nortriptyline HCl 25 MG eCW1 ([facility]) Nortriptyline 25 MG Oral Capsule Nortriptyline HCl 25 MG Nortriptyline HCl 25 MG 10/07/2020 12:00:00 AM EST 1.0 {capsule} acti ve Nortriptyline HCl 25 MG eCW1 ([facility]) Nortriptyline 25 MG Oral Capsule Nortriptyline HCl 25 MG Nortriptyline HCl 25 MG 10/07/2020 12:00:00 AM EST 1.0 {capsule} acti ve Nortriptyline HCl 25 MG eCW1 ([facility]) Nortriptyline 25 MG Oral Capsule Nortriptyline HCl 25 MG Nortriptyline HCl 25 MG 10/07/2020 12:00:00 AM EST 1.0 {capsule} acti ve Nortriptyline HCl 25 MG eCW1 ([facility]) Nortriptyline 25 MG Oral Capsule Nortriptyline HCl 25 MG Nortriptyline HCl 25 MG 10/07/2020 12:00:00 AM EST 1.0 {capsule} acti ve Nortriptyline HCl 25 MG eCW1 ([facility]) Nortriptyline 25 MG Oral Capsule Nortriptyline HCl 25 MG Nortriptyline HCl 25 MG 10/07/2020 12:00:00 AM EST 1.0 {capsule} acti ve Nortriptyline HCl 25 MG eCW1 ([facility]) Nortriptyline 25 MG Oral Capsule Nortriptyline HCl 25 MG Nortriptyline HCl 25 MG 10/07/2020 12:00:00 AM EST 1.0 {capsule} acti ve Nortriptyline HCl 25 MG eCW1 ([facility]) Nortriptyline 25 MG Oral Capsule Nortriptyline HCl 25 MG Nortriptyline HCl 25 MG 10/07/2020 12:00:00 AM EST 1.0 {capsule} acti ve Nortriptyline HCl 25 MG eCW1 ([facility]) Nortriptyline 25 MG Oral Capsule Nortriptyline HCl 25 MG Nortriptyline HCl 25 MG 10/07/2020 12:00:00 AM EST 1.0 {capsule} acti ve Nortriptyline HCl 25 MG eCW1 ([facility]) Nortriptyline 25 MG Oral Capsule Nortriptyline HCl 25 MG Nortriptyline HCl 25 MG 10/07/2020 12:00:00 AM EST 1.0 {capsule} acti ve Nortriptyline HCl 25 MG eCW1 ([facility]) Nortriptyline 25 MG Oral Capsule Nortriptyline HCl 25 MG Nortriptyline HCl 25 MG 10/07/2020 12:00:00 AM EST 1.0 {capsule} acti ve Nortriptyline HCl 25 MG eCW1 ([facility]) 2 ML Sodium Hyaluronate 10 MG/ML Prefilled Syringe [Euflexxa ] Euflexxa 09/16/2020 12:00:00 AM EST active MEDENT ([facility]) 2 ML Sodium Hyaluronate 10 MG/ML Prefilled Syringe [Euflexxa ] Euflexxa 02/21/2020 12:00:00 AM EDT completed MEDENT ([facility]) Insurance Providers Payer name Policy type / Coverage type Policy ID Covered constitution party ID Covered constitution party's relationship to fatima Policy Fatima Plan Information [employer] [id number] [place]2 [id number] [employer] (pr) Commercial [id number] Family Dependent [id number] [employer]OM[employer] [id number] [place]2 [id number] POM[employer] [id number] [place] [id number] Umr (pr) Medigap Part B [id number] [facility] Dependent [id number] ANSI-Commercial [id number] ANSI-Commercial [id number] ANSI-Commercial [id number] ANSI-Commercial [id number] ANSI-Commercial [id number] ANSI-Commercial [id number] ANSI-Commercial [id number] ANSI-Commercial [id number] [facility] [id number] [facility] [id number] ANSI-Commercial [id number] ANSI-Commercial [id number] ANSI-Commercial [id number] ANSI-Commercial [id number] ANSI-Commercial [id number] UMR [facility] [id number] WI2 [id number] UMR O [id number] P [id number] [employer] PPO O [id number] P [id number] [employer] [id number] WI2 [id number] [employer] [id number] WI2 [id number] [employer] (HMO) [id number] Family Dependent [id number] [employer] [id number] WI2 [id number] ANSI-Commercial [id number] UMR F [id number] SELF [id number] UMR HEA [id number] S [id number] STATE INS[employer]ANCE FUND [id number] SP [id number] STATE INS[employer] FUND O [id number] S [id number] Problems, Conditions, and Diagnoses Code Display Name Description Problem Type Effective Dates Data Source(s) R39.15 [id number] Urinary urgency Problem 02/17/2021 12:00:00 AM EDT eCW[facility] Surgeries/Procedures Procedure Description Date Indications Data Source(s) ARTHROCENTESIS ASPIR&/INJECTION MAJOR JT/BURSA 021 12:00:00 AM EDT MEDENT ([facility]) RADIOLOGIC EXAM KNEE COMPLETE 4/MORE VIEWS 07/07/2021 12:00:00 AM EDT MEDENT ([facility]) OFFICE OUTPATIENT VISIT 25 MINUTES 07/07/2021 12:00:00 AM EDT MEDENT ([facility]) Electrocardiogram Interpretation & Report Only 12:00:00 AM EDT MEDENT ([facility]) ARTHROCENTESIS ASPIR&/INJECTION MAJOR JT/BURSA 12:00:00 AM EDT MEDENT ([facility]) OFFICE OUTPATIENT VISIT 25 MINUTES 03/03/2021 12:00:00 AM EDT MEDENT ([facility]) ARTHROCENTESIS ASPIR&/INJECTION MAJOR JT/BURSA 12:00:00 AM EST MEDENT ([facility]) ARTHROCENTESIS ASPIR&/INJECTION MAJOR JT/BURSA 12:00:00 AM EST MEDENT ([facility]) ARTHROCENTESIS ASPIR&/INJECTION MAJOR JT/BURSA 12:00:00 AM EST MEDENT ([facility]) ARTHROCENTESIS ASPIR&/INJECTION MAJOR JT/BURSA 12:00:00 AM EST MEDENT ([facility]) ARTHROCENTESIS ASPIR&/INJECTION MAJOR JT/BURSA 12:00:00 AM EDT MED[facility] ([facility]) Results ID Date Data Source [id number] 09/13/2021 09:45:00 AM EST [facility] Name Value Range Interpretation Code Description Data Janneth rce(s) Supporting Document(s) SARS-CoV-2 (COVID-19) RNA [Presence] in Respiratory specimen by EDEN with probe detection Not Detected [facility] This lab was ordered by [facility] and reported by [facility]. ID Date Data Source [id number] 06/16/2021 12:09:59 PM EDT [facility] JULIEN Name Value Range Interpretation Code Description Data Janneth rce(s) Supporting Document(s) POC GLUCOSE 157 mg/dL (70-99) H [facility] Kimble NOTIFIED NURSEPERFORMED BY CLINICAL S TAFF ID Date Data Source [id number] 06/16/2021 08:26:58 AM EDT [facility] Name Value Range Interpretation Code Description Data Janneth rce(s) Supporting Document(s) POC GLUCOSE 141 mg/dL (70-99) H [facility] NOTIFIED NURSEPERFORMED BY CLINICAL S TAFF ID Date Data Source [id number] 06/16/2021 08:09:19 AM EDT [facility] Name Value Range Interpretation Code Description Data Janneth rce(s) Supporting Document(s) SODIUM 140 mmol/L (136-145) [facility] POTASSIUM 4.2 mmol/L (3.6-5.2) [facility] CHLORIDE 105 mmol/L (100-108) [facility] CO2 25 mmol/L (22-31) [facility] ANION GAP 10 mmol/L (7-16) [facility] UREA NITROGEN 20 mg/dL (7-24) [facility] CREATININE 0.88 mg/dL (0.80-1.30) [facility] BUN/CREAT RATIO 22.7 RATIO (10.0-20.0) [facility] GLUCOSE 114 mg/dL (70-99) H [facility] CALCIUM 8.6 mg/dL (8.4-10.2) [facility] GFR >60 ml/min/1.73m2 (>59) [facility] GFR ( AMER) >60 ml/min/1.73m2 (>59) [facility] GFR INTERPRETATION [facility] --NORMAL KIDNEY FUNCTION OR MILD DISEASE - GFR >OR= 60CHRONIC KIDNEY DISEASE - GFR 15 - 59RENAL FAILURE - GFR <15 Est. GFR calculation based on the MDRDstudy equation, which assumes a steadystate for creatinine. Est. GFR should notbe used for medication dosing. ID Date Data Source [id number] 06/16/2021 07:45:14 AM EDT [facility] Name Value Range Interpretation Code Description Data Janneth rce(s) Supporting Document(s) WBC 5.6 10*3/uL (4.1-11.0) [facility] [place] RBC 4.08 10*6/uL (4.60-6.10) L [facility] HGB 13.9 g/dL (13.5-18.0) [facility] HCT 40.8 % (41.0-53.0) L [facility] MCV 99.9 fL (80.0-95.0) [facility] MCH 34.0 pg (27.0-32.0) H [facility] MCHC 34.0 g/dL (32.0-36.0) [facility] RDW 12.3 % (10.5-14.5) [facility] PLT 187 10*3/uL (150-450) [facility] MPV 8.4 fL (7.1-10.7) [facility] NEUT % 70.4 % (35.0-75.0) [facility] LYMPH % 16.7 % (16.0-52.0) [facility] MONO % 9.2 % (0.0-8.0) H [facility] EOS % 2.2 % (0.0-5.0) [facility] BASO % 1.5 % (0.0-4.0) [facility] NEUT # 3.9 10*3/uL (1.8-7.7) [facility] LYMPH # 0.9 10*3/uL (1.2-4.8) L [facility] MONO # 0.5 10*3/uL (0.0-0.8) [facility] Eosinophils [#/volume] in Blood by Automated count 0.1 10*3/uL (0.0-0 .5) [facility] BASO # 0.1 10*3/uL (0.0-0.2) [facility] ID Date Data Source [id number] 06/15/2021 05:07:58 PM EDT [facility] Name Value Range Interpretation Code Description Data Janneth rce(s) Supporting Document(s) POC GLUCOSE 172 mg/dL (70-99) H [facility] PERFORMED BY CLINICAL STAFF ID Date Data Source [id number] 06/15/2021 12:15:07 PM EDT [facility] Name Value Range Interpretation Code Description Data Janneth rce(s) Supporting Document(s) POC GLUCOSE 205 mg/dL (70-99) H [facility] NOTIFIED NURSEPERFORMED BY CLINICAL S TAFF ID Date Data Source [id number] 06/15/2021 07:48:34 AM EDT [facility] Name Value Range Interpretation Code Description Data Janneth rce(s) Supporting Document(s) POC GLUCOSE 151 mg/dL (70-99) H [facility] NOTIFIED NURSEPERFORMED BY CLINICAL S TAFF ID Date Data Source [id number] 06/15/2021 07:58:13 AM EDT [facility] Name Value Range Interpretation Code Description Data Janneth rce(s) Supporting Document(s) SODIUM 140 mmol/L (136-145) [facility] POTASSIUM 4.2 mmol/L (3.6-5.2) [facility] CHLORIDE 106 mmol/L (100-108) [facility] CO2 25 mmol/L (22-31) [facility] ANION GAP 9 mmol/L (7-16) [facility] UREA NITROGEN 22 mg/dL (7-24) [facility] CREATININE 0.91 mg/dL (0.80-1.30) [facility] BUN/CREAT RATIO 24.2 RATIO (10.0-20.0) H [facility] GLUCOSE 107 mg/dL (70-99) H [facility] CALCIUM 8.1 mg/dL (8.4-10.2) L [facility] GFR >60 ml/min/1.73m2 (>59) [facility] GFR ( AMER) >60 ml/min/1.73m2 (>59) [facility] GFR INTERPRETATION [facility] --NORMAL KIDNEY FUNCTION OR MILD DISEASE - GFR >OR= 60CHRONIC KIDNEY DISEASE - GFR 15 - 59RENAL FAILURE - GFR <15 Est. GFR calculation based on the MDRDstudy equation, which assumes a steadystate for creatinine. Est. GFR should notbe used for medication dosing. ID Date Data Source [id number] 06/15/2021 07:19:03 AM EDT [facility] Name Value Range Interpretation Code Description Data Janneth rce(s) Supporting Document(s) WBC 5.4 10*3/uL (4.1-11.0) [facility] [place] RBC 3.92 10*6/uL (4.60-6.10) L [facility] HGB 13.5 g/dL (13.5-18.0) [facility] HCT 39.2 % (41.0-53.0) L [facility] MCV 100.0 fL (80.0-95.0) H [facility] MCH 34.5 pg (27.0-32.0) H [facility] MCHC 34.5 g/dL (32.0-36.0) [facility] RDW 12.3 % (10.5-14.5) [facility] PLT 179 10*3/uL (150-450) [facility] MPV 8.4 fL (7.1-10.7) [facility] NEUT % 69.3 % (35.0-75.0) [facility] LYMPH % 17.2 % (16.0-52.0) [facility] MONO % 10.0 % (0.0-8.0) H [facility] EOS % 2.7 % (0.0-5.0) [facility] BASO % 0.8 % (0.0-4.0) [facility] NEUT # 3.8 10*3/uL (1.8-7.7) [facility] LYMPH # 0.9 10*3/uL (1.2-4.8) L [facility] MONO # 0.5 10*3/uL (0.0-0.8) [facility] Eosinophils [#/volume] in Blood by Automated count 0.1 10*3/uL (0.0-0 .5) [facility] BASO # 0.0 10*3/uL (0.0-0.2) [facility] ID Date Data Source [id number] 06/14/2021 08:56:19 PM EDT [facility] Name Value Range Interpretation Code Description Data Janneth rce(s) Supporting Document(s) POC GLUCOSE 171 mg/dL (70-99) H [facility] PERFORMED BY CLINICAL STAFF ID Date Data Source [id number] 06/14/2021 04:37:18 PM EDT [facility] Name Value Range Interpretation Code Description Data Janneth rce(s) Supporting Document(s) POC GLUCOSE 181 mg/dL (70-99) H [facility] PERFORMED BY CLINICAL STAFF ID Date Data Source [id number] 06/14/2021 01:21:19 PM EDT [facility] Name Value Range Interpretation Code Description Data Janneth rce(s) Supporting Document(s) POC GLUCOSE 243 mg/dL (70-99) H [facility] PERFORMED BY CLINICAL STAFF ID Date Data Source [id number] 08/09/2021 12:48:23 PM EDT [facility] SPECIMEN DESCRIPTION ABSCESSSPECI AL REQUESTS NONEACID FAST SMEAR NO ACID FAST BACILLI (CONCENTRATED SMEAR)CULTURE RESULTS NO ACID FAST BACILLI ISOLATED AFTER 8 WEEKSREPORT STATUS FINAL 08/09/2021 Name Value Range Interpretation Code Description Data Janneth rce(s) Supporting Document(s) ID Date Data Source [id number] 06/17/2021 07:32:53 AM EDT [facility] SPECIMEN DESCRIPTION ABSCESSSPECI AL REQUESTS NONECULTURE RESULTS NO ANAEROBES ISOLATEDREPORT STATUS FINAL 06/17/2021 Name Value Range Interpretation Code Description Data Janneth rce(s) Supporting Document(s) ID Date Data Source [id number] 06/16/2021 11:10:04 AM EDT [facility] SPECIMEN DESCRIPTION ABSCESSSPECI AL REQUESTS NONEGRAM STAIN RARE (<1/LPF) WHITE BLOOD CELLS NO BACTERIACULTURE RESULTS RARE METHICILLIN RESISTANT STAPH AUREUS ISOLATED. IF NEEDED, ADDITIONAL SUSCEPTIBILITY RESULTS MA Y BE OBTAINED BY CONTACTING THE MICROBIOLOGY LABORATORY ([phone]). CHANDRA NUMBERS CAN NOT BE DIRECTLY COMPARED ACROSS DIFFERENT ANTIBIOTICS. CHANDRA VALUES ARE OCCASIONALLY USEFUL. SUSCEPTIBLE OR RESISTANT INTERPRETATIONS ALONE ARE SUFFICIENT FOR ANTIBIOTIC SELECTION IN THE GREAT MAJORITY OF INFECTIONS.RESULT(S) CALLED TO AND READ BACK BY CAROLYNN AT 11:07 AND EMAILED MELISSA SULLIVAN AT 10:47 ON [id number]. REPORT STATUS FINAL 06/16/2021ORGANISM METHICILLIN RESISTANT STAPH AUREUS ISOLATED.METHOD MICCLINDAMYCIN 0.25 SUSCEPTIBLEOXACILLIN >=4 RESISTANT OXACILLIN PREDICTS RESULTS FOR PENICILLINASE RESISTANT PENICILLINS, BETA LACTAM/BETALACTAMASE INHIBITOR COMBINATIONS,CEPHALOSPORINS (WITH THE EXCEPTION OF CEPHALOSPORINS WITH ANTI MRSA ACTIVITY), AND CARBAPENEMS PER CLSI STANDARDS.TETRACYCLINE <=1 SUSCEPTIBLE ISOLATES SUSCEPTIBLE TO TETRACYCLINE ARE ALSO SUSCEPTIBLE TO DOXYCYCLINE AND MINOCYCLINE.VANCOMYCIN <=0.5 SUSCEPTIBLETRIMETH/SULFA <=.5/9.5 SUSCEPTIBLE Name Value Range Interpretation Code Description Data Janneth rce(s) Supporting Document(s) ID Date Data Source [id number] 06/14/2021 08:15:25 AM EDT [facility] Name Value Range Interpretation Code Description Data Janneth rce(s) Supporting Document(s) POC GLUCOSE 163 mg/dL (70-99) H [facility] PERFORMED BY CLINICAL STAFF ID Date Data Source [id number] 06/14/2021 07:11:12 AM EDT [facility] Name Value Range Interpretation Code Description Data Janneth rce(s) Supporting Document(s) SODIUM 141 mmol/L (136-145) [facility] POTASSIUM 3.9 mmol/L (3.6-5.2) [facility] CHLORIDE 106 mmol/L (100-108) [facility] CO2 24 mmol/L (22-31) [facility] ANION GAP 11 mmol/L (7-16) [facility] UREA NITROGEN 24 mg/dL (7-24) [facility] CREATININE 0.90 mg/dL (0.80-1.30) [facility] BUN/CREAT RATIO 26.7 RATIO (10.0-20.0) H [facility] GLUCOSE 126 mg/dL (70-99) H [facility] CALCIUM 8.5 mg/dL (8.4-10.2) [facility] GFR >60 ml/min/1.73m2 (>59) [facility] GFR ( AMER) >60 ml/min/1.73m2 (>59) [facility] GFR INTERPRETATION [facility] --NORMAL KIDNEY FUNCTION OR MILD DISEASE - GFR >OR= 60CHRONIC KIDNEY DISEASE - GFR 15 - 59RENAL FAILURE - GFR <15 Est. GFR calculation based on the MDRDstudy equation, which assumes a steadystate for creatinine. Est. GFR should notbe used for medication dosing. ID Date Data Source [id number] 06/14/2021 06:42:04 AM EDT [facility] Name Value Range Interpretation Code Description Data Janneth rce(s) Supporting Document(s) WBC 5.2 10*3/uL (4.1-11.0) [facility] RBC 4.00 10*6/uL (4.60-6.10) L [facility] HGB 13.6 g/dL (13.5-18.0) [facility] HCT 40.1 % (41.0-53.0) L [facility] MCV 100.2 fL (80.0-95.0) H [facility] MCH 34.1 pg (27.0-32.0) H [facility] MCHC 34.1 g/dL (32.0-36.0) [facility] RDW 12.3 % (10.5-14.5) [facility] PLT 177 10*3/uL (150-450) [facility] MPV 8.5 fL (7.1-10.7) [facility] ID Date Data Source [id number] 06/13/2021 10:20:20 PM EDT [facility] Name Value Range Interpretation Code Description Data Janneth rce(s) Supporting Document(s) POC GLUCOSE 156 mg/dL (70-99) H [facility] PERFORMED BY CLINICAL STAFF ID Date Data Source [id number] 06/13/2021 10:30:35 PM EDT [facility] Name Value Range Interpretation Code Description Data Janneth rce(s) Supporting Document(s) VANCOMYCIN TROUGH 14.4 ug/mL (10.0-20.0) [facility] ID Date Data Source [id number] 06/13/2021 04:56:57 PM EDT [facility] Name Value Range Interpretation Code Description Data Janneth rce(s) Supporting Document(s) POC GLUCOSE 170 mg/dL (70-99) H [facility] NOTIFIED NURSEPERFORMED BY CLINICAL S TAFF ID Date Data Source [id number] 06/13/2021 11:46:51 AM EDT [facility] Name Value Range Interpretation Code Description Data Janneth rce(s) Supporting Document(s) POC GLUCOSE 184 mg/dL (70-99) H [facility] PERFORMED BY CLINICAL STAFF ID Date Data Source [id number] 06/13/2021 08:20:05 AM EDT [facility] Name Value Range Interpretation Code Description Data Janneth rce(s) Supporting Document(s) POC GLUCOSE 159 mg/dL (70-99) H [facility] NOTIFIED NURSEPERFORMED BY CLINICAL S TAFF ID Date Data Source [id number] 06/18/2021 10:09:08 AM EDT [facility] SPECIMEN DESCRIPTION PERIPHERALSP ECIAL REQUESTS NONECULTURE RESULTS NO GROWTH 5 DAYSREPORT STATUS FINAL 06/18/2021 Name Value Range Interpretation Code Description Data Janneth rce(s) Supporting Document(s) ID Date Data Source [id number] 06/13/2021 05:48:27 AM EDT [facility] Name Value Range Interpretation Code Description Data Janneth rce(s) Supporting Document(s) SODIUM 141 mmol/L (136-145) [facility] POTASSIUM 3.9 mmol/L (3.6-5.2) [facility] CHLORIDE 109 mmol/L (100-108) H [facility] CO2 25 mmol/L (22-31) [facility] ANION GAP 7 mmol/L (7-16) [facility] UREA NITROGEN 19 mg/dL (7-24) [facility] CREATININE 0.83 mg/dL (0.80-1.30) [facility] BUN/CREAT RATIO 22.9 RATIO (10.0-20.0) H [facility] GLUCOSE 124 mg/dL (70-99) H [facility] CALCIUM 8.2 mg/dL (8.4-10.2) L [facility] GFR >60 ml/min/1.73m2 (>59) [facility] GFR ( AMER) >60 ml/min/1.73m2 (>59) [facility] GFR INTERPRETATION [facility] --NORMAL KIDNEY FUNCTION OR MILD DISEASE - GFR >OR= 60CHRONIC KIDNEY DISEASE - GFR 15 - 59RENAL FAILURE - GFR <15 Est. GFR calculation based on the MDRDstudy equation, which assumes a steadystate for creatinine. Est. GFR should notbe used for medication dosing. ID Date Data Source [id number] 06/13/2021 05:17:15 AM EDT [facility] Name Value Range Interpretation Code Description Data Janneth rce(s) Supporting Document(s) WBC 6.3 10*3/uL (4.1-11.0) [facility] [place] RBC 3.94 10*6/uL (4.60-6.10) L [facility] HGB 13.4 g/dL (13.5-18.0) L [facility] HCT 39.6 % (41.0-53.0) L [facility] MCV 100.6 fL (80.0-95.0) H [facility] MCH 33.9 pg (27.0-32.0) H [facility] MCHC 33.7 g/dL (32.0-36.0) [facility] RDW 12.3 % (10.5-14.5) [facility] PLT 157 10*3/uL (150-450) [facility] MPV 8.5 fL (7.1-10.7) [facility] [place] ID Date Data Source [id number] 06/18/2021 10:09:08 AM EDT [facility] SPECIMEN DESCRIPTION PERIPHERALSP ECIAL REQUESTS NONECULTURE RESULTS NO GROWTH 5 DAYSREPORT STATUS FINAL 06/18/2021 Name Value Range Interpretation Code Description Data Janneth rce(s) Supporting Document(s) ID Date Data Source [id number] 06/12/2021 06:01:22 PM EDT [facility] Name Value Range Interpretation Code Description Data Janneth rce(s) Supporting Document(s) POC GLUCOSE 186 mg/dL (70-99) H [facility] PERFORMED BY CLINICAL STAFF ID Date Data Source [id number] 06/12/2021 10:43:47 AM EDT [facility] Name Value Range Interpretation Code Description Data Janneth rce(s) Supporting Document(s) POC GLUCOSE 142 mg/dL (70-99) H [facility] [place] PERFORMED BY CLINICAL STAFF ID Date Data Source [id number] 06/12/2021 03:38:00 AM EDT [facility] Name Value Range Interpretation Code Description Data Janneth rce(s) Supporting Document(s) SARS coronavirus 2 RNA [Presence] in Res piratory specimen by EDEN with probe detection NOT DETECTED [facility] This lab was reported by [facility]. ID Date Data Source [id number] 06/12/2021 04:46:18 AM EDT [facility] Name Value Range Interpretation Code Description Data Janneth rce(s) Supporting Document(s) SPECIMEN DESCRIPTION [facility] INFLUENZA A (NEG) [facility] INFLUENZA B (NEG) [facility] [facility] RSV (NEG) [facility] COMMENT [facility] THE [place] FDA HAS MADE THIS TEST AVAILABL EUNDER AN EMERGENCY USE AUTHORIZATION(EUA) FOR THE DETECTION AND/OR DIAGNOSISOF THE VIRUS THAT CAUSES COVID-19.PERFORMED AT [address] [facility] [address] COVID19 RESULT (NDET) [facility] THIS ASSAY AMPLIFIES AND DETECTSTHE TARG ET RNA USING REAL-TIME PCR.TESTING PERFORMED ON [employer] GENEXPERTNEGATIVE 2019_NCOV RT-PCR RESULTS DONOT PRECLUDE 2019_NCOV INFECTION ANDSHOULD NOT BE USED THE SOLE BASISFOR PATIENT MANAGEMENT DECISIONS. FIRST TEST [facility] SYMPTOMATIC [facility] [place] DATE OF SYMPT ONSET [facility] HOSPITALIZED [facility] [place] [facility] CONGREGATE CARE SET [facility] ID Date Data Source [id number] 06/12/2021 12:24:43 PM EDT [facility] Name Value Range Interpretation Code Description Data Janneth rce(s) Supporting Document(s) HEMOGLOBIN A1C @ 7.8 % (4.0-6.0) H [facility] [place] Performed using Siemens [place] immunoassa y.Care must be taken when interpreting [id number] in patients with a hemoglobin variantor decreased erythrocyte lifespan. Values 5.7 - 6.4% suggest prediabetes.Values >=6.5% are diagnostic for diabetes.REFERENCE: DIABETES CARE 2018: 41(S13-S27).PERFORMED AT [address] [facility] [address] EST [place] GLUCOSE 177 mg/dL [facility] ID Date Data Source [id number] 06/12/2021 09:41:07 AM EDT [facility] Name Value Range Interpretation Code Description Data Janneth rce(s) Supporting Document(s) VANCOMYCIN RANDOM 11.4 ug/mL [facility] THERAPEUTIC RANGE IS ONLY AVAILABLE FOR PEAK AND TROUGH SPECIMENS. RANDOM LEVEL RESULTS MUST BE INTERPRETED BY THE PHYSICIAN. ID Date Data Source [id number] 06/12/2021 05:25:31 AM EDT [facility] Name Value Range Interpretation Code Description Data Janneth rce(s) Supporting Document(s) ESR 70 mm/h (0-20) H [facility] [place] ID Date Data Source [id number] 06/12/2021 04:28:59 AM EDT [facility] Name Value Range Interpretation Code Description Data Janneth rce(s) Supporting Document(s) C REACTIVE PROTEIN @ 11.8 mg/dL (0.0-0.5) H [facility] PERFOR[facility] AT [address] [facility] [id number] ID Date Data Source [id number] 06/12/2021 04:28:59 AM EDT [facility] Name Value Range Interpretation Code Description Data Janneth rce(s) Supporting Document(s) SODIUM 141 mmol/L (136-145) [facility] POTASSIUM 3.9 mmol/L (3.6-5.2) [facility] CHLORIDE 108 mmol/L (100-108) [facility] CO2 23 mmol/L (22-31) [facility] ANION GAP 10 mmol/L (7-16) [facility] UREA NITROGEN 16 mg/dL (7-24) [facility] CREATININE 0.76 mg/dL (0.80-1.30) L [facility] BUN/CREAT RATIO 21.1 RATIO (10.0-20.0) H [facility] GLUCOSE 133 mg/dL (70-99) H [facility] CALCIUM 7.9 mg/dL (8.4-10.2) L [facility] GFR >60 ml/min/1.73m2 (>59) [facility] GFR ( AMER) >60 ml/min/1.73m2 (>59) [facility] GFR INTERPRETATION [facility] --NORMAL KIDNEY FUNCTION OR MILD DISEASE - GFR >OR= 60CHRONIC KIDNEY DISEASE - GFR 15 - 59RENAL FAILURE - GFR <15 Est. GFR calculation based on the MDRDstudy equation, which assumes a steadystate for creatinine. Est. GFR should notbe used for medication dosing. ID Date Data Source [id number] 06/12/2021 03:46:35 AM EDT [facility] Name Value Range Interpretation Code Description Data Janneth rce(s) Supporting Document(s) WBC 8.6 10*3/uL (4.1-11.0) [facility] [place] RBC 4.26 10*6/uL (4.60-6.10) L [facility] HGB 14.6 g/dL (13.5-18.0) [facility] HCT 42.8 % (41.0-53.0) [facility] MCV 100.4 fL (80.0-95.0) H [facility] MCH 34.3 pg (27.0-32.0) H [facility] MCHC 34.2 g/dL (32.0-36.0) [facility] RDW 12.7 % (10.5-14.5) [facility] PLT 162 10*3/uL (150-450) [facility] MPV 8.3 fL (7.1-10.7) [facility] NEUT % 79.3 % (35.0-75.0) H [facility] LYMPH % 7.9 % (16.0-52.0) L [facility] MONO % 9.5 % (0.0-8.0) H [facility] EOS % 2.8 % (0.0-5.0) [facility] BASO % 0.5 % (0.0-4.0) [facility] NEUT # 6.8 10*3/uL (1.8-7.7) [facility] LYMPH # 0.7 10*3/uL (1.2-4.8) L [facility] MONO # 0.8 10*3/uL (0.0-0.8) [facility] Eosinophils [#/volume] in Blood by Automated count 0.2 10*3/uL (0.0-0 .5) [facility] BASO # 0.0 10*3/uL (0.0-0.2) [facility] ID Date Data Source [id number] 06/11/2021 10:28:00 PM EDT [facility] Name Value Range Interpretation Code Description Data Janneth rce(s) Supporting Document(s) SARS coronavirus 2 RNA [Presence] in Res piratory specimen by EDEN with probe detection NEGATIVE [facility] This lab was ordered by [facility] a nd reported by [facility]. Procedure Social History Code Duration Value Status Description Data Source(s ) Smoking 06/22/2021 12:00:00 AM EDT Never Smoker completed Never S moker [facility] Smoking 06/22/2021 12:00:00 AM EDT Never Smoker completed Never S moker eCW1 ([facility]) Smoking 06/22/2021 12:00:00 AM EDT Never Smoker completed Never S moker eCW1 ([facility]) Smoking 06/22/2021 12:00:00 AM EDT Never Smoker completed Never S moker eCW1 ([facility]) Smoking 06/12/2021 11:40:00 PM EDT Denies Ever Smoked complete d Denies Ever Smoked [facility] Smoking 02/24/2021 12:00:00 AM EDT Never Smoker completed Never S moker eCW1 ([facility]) Smoking 02/24/2021 12:00:00 AM EDT Never Smoker completed Never S moker eCW1 ([facility]) Smoking 01/14/2021 12:00:00 AM EDT Never Smoker completed Never S moker eCW1 ([facility]) Smoking 10/20/2020 12:00:00 AM EST Never Smoker completed Never S moker eCW1 ([facility]) Smoking 10/20/2020 12:00:00 AM EST Never Smoker completed Never S moker eCW1 ([facility]) Smoking 10/20/2020 12:00:00 AM EST Never Smoker completed Never S moker eCW1 ([facility]) Smoking 10/20/2020 12:00:00 AM EST Never Smoker completed Never S moker eCW1 ([facility]) Smoking 10/20/2020 12:00:00 AM EST Never Smoker completed Never S moker eCW1 ([facility]) Vital Signs ID Date Data Source UNK Name Value Range Interpretation Code Description Data Source(s) Body weight 188 [lb_av] 188 [lb_av] eCW1 (formerly [facility]) Body weight 85.28 kg 85.28 kg W1 ([facility]) Body height 66 [in_i] 66 [in_i] eCW1 ([facility]) Body mass index (BMI) [Ratio] 30.34 kg/m2 30.34 kg/m2 eCW1 ([facility]) Heart rate 78 /min 78 /min eCW1 ([facility]) Respiratory rate 18 /min 18 /min eCW1 ([facility]) Body temperature 97.8 [degF] 97.8 [degF] eCW1 ( [facility]) Systolic blood pressure 142 mm[Hg] 142 mm[Hg] e CW1 ([facility]) Diastolic blood pressure 78 mm[Hg] 78 mm[Hg] eCW1 ([facility]) Systolic blood pressure 157 mm[Hg] Normal (applies t o non-numeric results) 157 mm[Hg] [facility] Diastolic blood pressure 81 mm[Hg] Normal (applies to non-numeric results) 81 mm[Hg] [facility] Heart rate 71 min Normal (applies to non-numeric resul ts) 71 min [facility] Respiratory rate 16 min Normal (applies to non-numeric results) 16 min [facility] Body temperature 36.8 sharda Normal (applies to non-numeric results) 36.8 sharda [facility] Deprecated Oxygen saturation in Capillary blood by Oximetry 99 % Normal (applies to non-numeric results) 99 % [facility] Body height 167.81641868440065 cm Normal (applies to non-numeric results) 167.90345996761998 cm [facility] Body weight Measured 86.183 kg Normal (applies to n on-numeric results) 86.183 kg [facility] Body mass index (BMI) [Ratio] 30.67 kg/m2 No rmal (applies to non-numeric results) 30.67 kg/m2 [facility] Systolic blood pressure 140 mm[Hg] 140 mm[Hg] M EDENT ([facility], ) Diastolic blood pressure 76 mm[Hg] 76 mm[Hg] MEDENT ([facility]) Body height 66 [in_i] 66 [in_i] MEDENT ([facility]) 5'6" Body weight 200.00 [lb_av] 200.00 [lb_av] MEDEN T ([facility]) Body mass index (BMI) [Ratio] 32.3 kg/m2 32.3 k g/m2 [facility] ([facility]) [place] body weight 142 [lb_av] 142 [lb_av] MEDEN T ([facility]) Body weight 90.720 kg 90.720 kg [facility] ([facility]) Body surface area Derived from formula 2.00 m2 2.00 m2 [facility] ([facility]) Body weight 198.8 [lb_av] 198.8 [lb_av] eCW1 ([facility]) Body height 66 [in_i] 66 [in_i] eCW1 ([facility]) Body mass index (BMI) [Ratio] 32.08 kg/m2 32.08 kg/m2 eCW1 [facility]) Heart rate 85 /min 85 /min eCW1 ([facility]) Respiratory rate 18 /min 18 /min eCW1 ([facility]) Body temperature 97.1 [degF] 97.1 [degF] eCW1 ( [facility]) Systolic blood pressure 124 mm[Hg] 124 mm[Hg] e CW1 ([facility]) Diastolic blood pressure 76 mm[Hg] 76 mm[Hg] eCW1 ([facility]) Diastolic blood pressure 80 mm[Hg] 80 mm[Hg] eCW1 ([facility]) Body weight 201 [lb_av] 201 [lb_av] eCW1 ([facility]) Body height 66 [in_i] 66 [in_i] eCW1 ([facility]) Body mass index (BMI) [Ratio] 32.44 kg/m2 32.44 kg/m2 eCW1 ([facility]) Heart rate 86 /min 86 /min eCW1 ([facility]) Respiratory rate 20 /min 20 /min eCW1 ([facility]) Body temperature 97.6 [degF] 97.6 [degF] eCW1 ( [facility]) Systolic blood pressure 130 mm[Hg] 130 mm[Hg] e CW1 ([facility]) Body weight 200.8 [lb_av] 200.8 [lb_av] eCW1 ([facility]) Body height 66 [in_i] 66 [in_i] eCW1 ([facility]) Body mass index (BMI) [Ratio] 32.41 kg/m2 32.41 kg/m2 eCW1 ([facility]) Heart rate 81 /min 81 /min eCW1 ([facility]) Respiratory rate 18 /min 18 /min eCW1 ([facility]) Body temperature 97.1 [degF] 97.1 [degF] eCW1 ( [facility]) Systolic blood pressure 130 mm[Hg] 130 mm[Hg] e CW1 ([facility]) Diastolic blood pressure 74 mm[Hg] 74 mm[Hg] eCW1 ([facility]) Body temperature 97.5 [degF] 97.5 [degF] MEDENT ([facility] ) Body temperature 97.1 [degF] 97.1 [degF] MEDENT ([facility] ) Body height 66 [in_i] 66 [in_i] MEDENT ([facility] ) 5'6" Body weight 203.00 [lb_av] 203.00 [lb_av] MEDEN T ([facility] ) Body mass index (BMI) [Ratio] 32.8 kg/m2 32.8 k g/m2 MEDENT ([facility] ) Patient Treatment Plan of Care Planned Activity Planned Date Details Description Data Source (s) Mupirocin 0.02 MG/MG Topical Ointment 06/22/2021 12:00:00 AM EDT eCW1 ([facility]) Mupirocin 0.02 MG/MG Topical Ointment 06/22/2021 12:00:00 AM EDT eCW1 ([facility]) Mupirocin 0.02 MG/MG Topical Ointment 06/22/2021 12:00:00 AM EDT eCW1 ([facility]) Mupirocin 0.02 MG/MG Topical Ointment 06/22/2021 12:00:00 AM EDT eCW1 ([facility]) Tamsulosin hydrochloride 0.4 MG Oral Capsule 02/17/2021 12:00:00 AM EDT eCW1 ([facility]) Tamsulosin hydrochloride 0.4 MG Oral Capsule 02/17/2021 12:00:00 AM EDT eCW1 ([facility]) Doxycycline Monohydrate 100 MG Oral Capsule 01/14/2021 12:00:00 AM EDT eCW1 ([facility]) Mupirocin 0.02 MG/MG Topical Ointment 01/14/2021 12:00:00 AM EDT eCW1 ([facility]) sildenafil 100 MG Oral Tablet 01/04/2021 12:00:00 AM EDT eCW1 ([facility]) sildenafil 100 MG Oral Tablet 01/04/2021 12:00:00 AM EDT eCW1 ([facility]) 3 ML liraglutide 6 MG/ML Pen Injector [Victoza] 12/22/2020 12:00:00 AM EST eCW1 ([facility]) 3 ML liraglutide 6 MG/ML Pen Injector [Victoza] 12/22/2020 12:00:00 AM EST eCW1 ([facility]) 3 ML liraglutide 6 MG/ML Pen Injector [Victoza] 12/22/2020 12:00:00 AM EST eCW1 ([facility]) 3 ML liraglutide 6 MG/ML Pen Injector [Victoza] 12/22/2020 12:00:00 AM EST eCW1 ([facility]) 3 ML liraglutide 6 MG/ML Pen Injector [Victoza] 12/22/2020 12:00:00 AM EST eCW1 ([facility]) 3 ML liraglutide 6 MG/ML Pen Injector [Victoza] 12/22/2020 12:00:00 AM EST eCW1 ([facility]) 3 ML liraglutide 6 MG/ML Pen Injector [Kadetoza] 12/22/2020 12:00:00 AM EST eCW1 ([facility]) Nortriptyline 25 MG Oral Capsule 10/07/2020 12:00:00 AM EST eCW1 ([facility])
[2021-09-17] MEDS ORDERED: propofoL 200 MG/20 ML VIAL As Ordered ONE ×2 (08:02→08:22)
[2021-09-17] MEDS ORDERED: LIDOCAINE 2% 100MG/5ML SDV (FOR ANES.) As Ordered ONE (08:03)
--- NOTE | 2021-09-17 08:31 | ROOR ---
Patient Name: Kirill Rivera Procedure Date: 09/17/2021 8:05 AM Date of : 1955 Age: 66 Room: [facility] Gender: Male Note Status: Finalized Procedure: Colonoscopy Indications: High risk colon cancer surveillance: Personal history of colonic polyps Providers: Nikolas العراقي MD Referring MD: Eleuterio Esquivel MD Requesting Provider: Medicines: Monitored Anesthesia Care Complications: No immediate complications. Procedure: Pre-Anesthesia Assessment: - The heart rate, respiratory rate, oxygen saturations, blood pressure, adequacy of pulmonary ventilation, and response to care were monitored throughout the procedure. The Colonoscope was introduced through the anus and advanced to the terminal ileum, with identification of the appendiceal orifice and IC valve. The colonoscopy was performed without difficulty. The patient tolerated the procedure well. The quality of the bowel preparation was suboptimal. Findings: The perianal and digital rectal examinations were normal. (EXAM: Complete, PREP: Suboptimal) A tattoo was seen in the mid rectum. A post-polypectomy scar was found at the tattoo site. There was no evidence of residual polyp tissue. Mild sigmoid diverticulosis and small internal hemorrhoids. The exam was otherwise without abnormality. Impression: - (EXAM: Complete, PREP: Suboptimal) - A tattoo was seen in the mid rectum. A post-polypectomy scar was found at the tattoo site. There was no evidence of residual polyp tissue. - Mild sigmoid diverticulosis and small internal hemorrhoids. - The examination was otherwise normal. - No specimens collected. Recommendation: - Repeat colonoscopy in 2 years because the bowel preparation was suboptimal. - (Rec alternate colon preparation for next colonoscopy) Procedure Code(s): --- Professional --- 63606, Colonoscopy, flexible; diagnostic, including collection of specimen(s) by brushing or washing, when performed (separate procedure) Diagnosis Code(s): --- Professional --- Z86.010, Personal history of colonic polyps CPT copyright 2019 [employer]. All rights reserved. The codes documented in this report are preliminary and upon sole stapler welt review may be revised to meet current compliance requirements. Nikolas العراقي MD Nikolas العراقي MD 09/17/2021 8:30:58 AM Electronically signed by Nikolas العراقي MD Number of Addenda: 0 Note Initiated On: 09/17/2021 8:05 AM Estimated Blood Loss: Estimated blood loss: none.
[2021-09-17 08:49] VITALS: BP 99/50
== END 2021-09-17 08:50 | disposition home or self-care (01) ==
LOC: M OPP 06:58
PROVIDERS: ATTEND Internal Medicine Gastroenterology
DX: Z12.11 Encounter for screening for malignant neoplasm of colon (principal); Z86.010 Personal history of colon polyps; K57.30 Diverticulosis of large intestine without perforation or abscess without bleeding; K64.8 Other hemorrhoids; Z79.82 Long term (current) use of aspirin; Z79.899 Other long term (current) drug therapy; Z88.8 Allergy status to other drugs, medicaments and biological substances; Z80.49 Family history of malignant neoplasm of other genital organs; Z80.1 Family history of malignant neoplasm of trachea, bronchus and lung

== ENCOUNTER → 2021-12-20 | Outpatient (CLI) | payer OTHER ==
[~2021-12-20] MED LIST changes: -NS 1,000 ML IV ONE
[2021-12-20 06:59] LABS: BASO # 0.1 10^3/uL (0.0-0.2); BASO % 0.9 % (0.0-1.0); EOS # 0.2 10^3/uL (0.0-0.5); EOS % 3.8 % (0.0-3.0); HEMATOCRIT 43.9 % (42.0-52.0); LYMPH % 18.8 % (24.0-44.0); MEAN CORPUSCULAR HEMOGLOBIN 33.9 pg (27.0-33.0); MEAN CORPUSCULAR HGB CONC 34.2 g/dl (32.0-36.5); MEAN CORPUSCULAR VOLUME 99.1 fl (80.0-96.0); MONO # 0.6 10^3/uL (0.0-0.8); NEUTROPHILS # 3.4 10^3/uL (1.5-8.5); NEUTROPHILS % 65.1 % (36.0-66.0); PLATELET COUNT, AUTOMATED 113 10^3/uL (150-450); RED BLOOD COUNT 4.43 10^6/uL (4.30-6.10); WHITE BLOOD COUNT 5.3 10^3/uL (4.0-10.0)
[2021-12-20 07:33] LABS: ALBUMIN 3.8 GM/DL (3.2-5.2); ALT/SGPT 33 U/L (12-78); BILIRUBIN,TOTAL 1.7 MG/DL (0.2-1.0); BLOOD UREA NITROGEN 23 MG/DL (7-18); CALCIUM LEVEL 8.9 MG/DL (8.8-10.2); CARBON DIOXIDE LEVEL 24 MEQ/L (21-32); CHLORIDE LEVEL 106 MEQ/L (98-107); CHOLESTEROL LEVEL 117 MG/DL (<200); CHOLESTEROL RISK RATIO 2.543 (<5); CREATININE FOR GFR 1.06 MG/DL (0.70-1.30); GLOMERULAR FILTRATION RATE > 60.0 (>49); GLUCOSE, FASTING 95 MG/DL (70-100); HDL CHOLESTEROL 46 MG/DL (>40); LDL CHOLESTEROL 45 MG/DL (<100); MAGNESIUM LEVEL 2.5 MG/DL (1.8-2.4); NON-HDL-C 71 MG/DL; POTASSIUM SERUM 4.1 MEQ/L (3.5-5.1); SODIUM LEVEL 139 MEQ/L (136-145); TOTAL PROTEIN 6.5 GM/DL (6.4-8.2); TRIGLYCERIDES LEVEL 130 MG/DL (<150)
[2021-12-20 07:39] LABS: MALB URINE SIEMENS 11.6 MG/L; MAU/CREAT RATIO 6.1 MCG/MG (0.0-30.0)
[2021-12-20 08:38] LABS: HEMOGLOBIN A1c 6.7 %
== END ==
LOC: M LAB 06:25
PROVIDERS: ATTEND Internal Medicine
DX: E11.42 Type 2 diabetes mellitus with diabetic polyneuropathy (principal)

== ENCOUNTER → 2022-06-28 | Outpatient (CLI) | payer OTHER ==
[2022-06-28 06:58] LABS: BASO # 0.1 10^3/uL (0.0-0.2); BASO % 0.9 % (0.0-1.0); EOS # 0.2 10^3/uL (0.0-0.5); HEMATOCRIT 42.3 % (42.0-52.0); HEMOGLOBIN 14.6 g/dl (13.5-17.5); LYMPH # 0.8 10^3/uL (1.5-5.0); LYMPH % 14.8 % (24.0-44.0); MEAN CORPUSCULAR HEMOGLOBIN 34.7 pg (27.0-33.0); MEAN CORPUSCULAR HGB CONC 34.5 g/dl (32.0-36.5); MEAN CORPUSCULAR VOLUME 100.5 fl (80.0-96.0); MONO # 0.5 10^3/uL (0.0-0.8); MONO % 9.3 % (2.0-8.0); NEUTROPHILS # 3.8 10^3/uL (1.5-8.5); NEUTROPHILS % 69.9 % (36.0-66.0); PLATELET COUNT, AUTOMATED 148 10^3/uL (150-450); RED BLOOD COUNT 4.21 10^6/uL (4.30-6.10); WHITE BLOOD COUNT 5.5 10^3/uL (4.0-10.0)
[2022-06-28 07:30] LABS: ALBUMIN 3.9 GM/DL (3.2-5.2); ALT/SGPT 32 U/L (12-78); BILIRUBIN,TOTAL 0.9 MG/DL (0.2-1.0); BLOOD UREA NITROGEN 17 MG/DL (7-18); CALCIUM LEVEL 9.2 MG/DL (8.8-10.2); CARBON DIOXIDE LEVEL 25 MEQ/L (21-32); CHLORIDE LEVEL 107 MEQ/L (98-107); GLOMERULAR FILTRATION RATE > 60.0 (>49); GLUCOSE, FASTING 174 MG/DL (70-100); POTASSIUM SERUM 4.1 MEQ/L (3.5-5.1); SODIUM LEVEL 138 MEQ/L (136-145); TOTAL PROTEIN 6.6 GM/DL (6.4-8.2)
== END ==
LOC: M LAB 06:06
PROVIDERS: ATTEND Internal Medicine
DX: E11.42 Type 2 diabetes mellitus with diabetic polyneuropathy (principal); I10 Essential (primary) hypertension; Z79.899 Other long term (current) drug therapy; Z12.5 Encounter for screening for malignant neoplasm of prostate

== ENCOUNTER → 2023-04-12 | Outpatient (CLI) | payer OTHER ==
[2023-04-12 07:27] LABS: HEMATOCRIT 42.8 % (42.0-52.0); HEMOGLOBIN 14.7 g/dl (13.5-17.5); MEAN CORPUSCULAR HEMOGLOBIN 34.2 pg (27.0-33.0); MEAN CORPUSCULAR HGB CONC 34.3 g/dl (32.0-36.5); MEAN CORPUSCULAR VOLUME 99.5 fl (80.0-96.0); PLATELET COUNT, AUTOMATED 129 10^3/uL (150-450); WHITE BLOOD COUNT 5.7 10^3/uL (4.0-10.0)
[2023-04-12 07:48] LABS: CREATININE, URINE 127.8 MG/DL; MAU/CREAT RATIO 4.6 MCG/MG (0.0-30.0)
[2023-04-12 07:51] LABS: THYROID STIMULATING HORMONE 1.477 uIU/ML (0.55-4.78); TOTAL 25(OH) VITAMIN D 30.8 NG/ML (20.0-100.0)
[2023-04-12 07:52] LABS: VITAMIN B12 LEVEL 339 PG/ML (211-911)
[2023-04-12 08:09] LABS: ALKALINE PHOSPHATASE 90 U/L (46-116); ALT/SGPT 13 U/L (7.0-40); AST/SGOT < 8 U/L (<34); BILIRUBIN,TOTAL 1.1 MG/DL (0.3-1.2); BLOOD UREA NITROGEN 30 MG/DL (9-23); C REACTIVE PROTEIN QUANTITATIV < 0.40 MG/DL (<1.0); CALCIUM LEVEL 8.8 MG/DL (8.3-10.6); CARBON DIOXIDE LEVEL 21 MMOL/L (20-31); CHLORIDE LEVEL 107 MMOL/L (98-107); CHOLESTEROL LEVEL 108 MG/DL (<200); CHOLESTEROL RISK RATIO 2.64 (<5); CREATININE FOR GFR 1.02 MG/DL (0.70-1.30); GLOMERULAR FILTRATION RATE > 60.0 (>49); GLUCOSE, FASTING 177 MG/DL (74-106); HDL CHOLESTEROL 40.8 MG/DL (>40); LDL CHOLESTEROL 49.2 MG/DL (<100); NON-HDL-C 67.2 MG/DL; POTASSIUM SERUM 4.5 MMOL/L (3.5-5.1); SODIUM LEVEL 138 MMOL/L (136-145); TOTAL PROTEIN 6.1 G/DL (5.7-8.2); TRIGLYCERIDES LEVEL 90 MG/DL (<150)
[2023-04-12 08:48] LABS: HEMOGLOBIN A1c 6.6 % (4.0-6.0)
== END ==
LOC: M LAB 06:02
PROVIDERS: ATTEND Internal Medicine Hematology
DX: E11.42 Type 2 diabetes mellitus with diabetic polyneuropathy (principal)

== ENCOUNTER → 2023-10-23 | Outpatient (CLI) | payer MEDICARE, OTHER ==
[2023-10-23 07:06] LABS: HEMATOCRIT 43.3 % (42.0-52.0); MEAN CORPUSCULAR HEMOGLOBIN 34.7 pg (27.0-33.0); MEAN CORPUSCULAR HGB CONC 34.6 g/dl (32.0-36.5); MEAN CORPUSCULAR VOLUME 100.2 fl (80.0-96.0); PLATELET COUNT, AUTOMATED 127 10^3/uL (150-450); RED BLOOD COUNT 4.32 10^6/uL (4.30-6.10); WHITE BLOOD COUNT 5.3 10^3/uL (4.0-10.0)
[2023-10-23 07:26] LABS: HEMOGLOBIN A1c 6.4 % (4.0-6.0)
[2023-10-23 07:30] LABS: CREATININE, URINE 72.4 MG/DL
[2023-10-23 07:31] LABS: C REACTIVE PROTEIN QUANTITATIV < 0.40 MG/DL (<1.0); MALB URINE SIEMENS < 3.0 MG/L; MAU/CREAT RATIO 4.1 MCG/MG (0.0-30.0)
[2023-10-23 07:33] LABS: ALBUMIN 4.2 G/DL (3.2-5.2); ALKALINE PHOSPHATASE 77 U/L (46-116); ALT/SGPT 23 U/L (7.0-40); AST/SGOT 19 U/L (<34); BILIRUBIN,TOTAL 1.3 MG/DL (0.3-1.2); BLOOD UREA NITROGEN 27 MG/DL (9-23); CALCIUM LEVEL 9.2 MG/DL (8.3-10.6); CARBON DIOXIDE LEVEL 28 MMOL/L (20-31); CHLORIDE LEVEL 107 MMOL/L (98-107); CHOLESTEROL LEVEL 151 MG/DL (<200); CHOLESTEROL RISK RATIO 2.74 (<5); CREATININE FOR GFR 1.05 MG/DL (0.70-1.30); GLOMERULAR FILTRATION RATE > 60.0 (>49); GLUCOSE, FASTING 174 MG/DL (74-106); HDL CHOLESTEROL 55.1 MG/DL (>40); LDL CHOLESTEROL 72.5 MG/DL (<100); NON-HDL-C 95.9 MG/DL; POTASSIUM SERUM 4.6 MMOL/L (3.5-5.1); SODIUM LEVEL 141 MMOL/L (136-145); TOTAL PROTEIN 6.6 G/DL (5.7-8.2); TRIGLYCERIDES LEVEL 117 MG/DL (<150)
[2023-10-23 07:34] LABS: TESTOSTERONE 344 NG/DL (241-827); THYROID STIMULATING HORMONE 2.316 uIU/ML (0.55-4.78); TOTAL 25(OH) VITAMIN D 20.5 NG/ML (20.0-100.0)
[2023-10-23 07:35] LABS: FREE T4 1.13 NG/DL (0.89-1.76); VITAMIN B12 LEVEL 321 PG/ML (211-911)
== END ==
LOC: M LAB 06:06
PROVIDERS: ATTEND Internal Medicine Hematology
DX: E29.1 Testicular hypofunction (principal); E11.9 Type 2 diabetes mellitus without complications; Z79.899 Other long term (current) drug therapy; Z12.5 Encounter for screening for malignant neoplasm of prostate
CPT/HCPCS: 36415; 80053; 80061; 82043; 82306; 82607; 83036; 83525; 84403; 84439; 84443; 85027; 86140; G0103

== ENCOUNTER → 2023-11-03 | Outpatient (CLI) | payer MEDICARE, OTHER ==
[2023-11-03 07:54] LABS: C REACTIVE PROTEIN QUANTITATIV < 0.40 MG/DL (<1.0)
[2023-11-03 07:56] LABS: RHEUMATOID FACTOR QUANT < 3.5 IU/ML (<14)
[2023-11-04 21:11] LABS: ANA (HEP2) Positive (.); CYCLIC CITRULLINATED PEPTIDE 4 units (0-19)
== END ==
LOC: M LAB 06:42
PROVIDERS: ATTEND Internal Medicine Hematology
DX: M19.90 Unspecified osteoarthritis, unspecified site (principal)

== ENCOUNTER → 2023-11-24 | Outpatient (CLI) | payer MEDICARE, OTHER ==
[2023-11-24 07:50] LABS: THYROID STIMULATING HORMONE 1.767 uIU/ML (0.55-4.78)
[2023-11-24 07:51] LABS: FOLATE > 24.0 NG/ML (>5.4); VITAMIN B12 LEVEL 355 PG/ML (211-911)
== END ==
LOC: M LAB 06:11
PROVIDERS: ATTEND Psychiatry & Neurology Neurology
DX: E53.8 Deficiency of other specified B group vitamins (principal); E03.9 Hypothyroidism, unspecified; F04 Amnestic disorder due to known physiological condition

== ENCOUNTER 2024-01-29 09:22 | Day surgery (SDC) | payer MEDICARE, OTHER ==
[~2024-01-29] VITALS: Ht 167.6 cm; Wt 87.1 kg
[~2024-01-29 09:22] MED LIST changes: +JARD1TAB3 PO; +LISI40TA4 PO; +SEMA2PEN SQ; +SILD100T PO
[2024-01-29 11:38] VITALS: TEMP 98.5
[2024-01-29 11:50] VITALS: BP 123/62; O2SAT 95
== END 2024-01-29 12:01 | disposition home or self-care (01) ==
LOC: M OPP 09:22
PROVIDERS: ATTEND Internal Medicine Gastroenterology
DX: Z12.11 Encounter for screening for malignant neoplasm of colon (principal); Z86.010 Personal history of colon polyps; K63.5 Polyp of colon; K57.30 Diverticulosis of large intestine without perforation or abscess without bleeding; I25.10 Atherosclerotic heart disease of native coronary artery without angina pectoris; E11.9 Type 2 diabetes mellitus without complications; Z95.5 Presence of coronary angioplasty implant and graft; Z87.891 Personal history of nicotine dependence; Z79.02 Long term (current) use of antithrombotics/antiplatelets; Z79.1 Long term (current) use of non-steroidal anti-inflammatories (NSAID); Z79.84 Long term (current) use of oral hypoglycemic drugs; Z79.82 Long term (current) use of aspirin; Z79.899 Other long term (current) drug therapy; Z88.1 Allergy status to other antibiotic agents; Z88.2 Allergy status to sulfonamides; Z88.8 Allergy status to other drugs, medicaments and biological substances

== ENCOUNTER → 2024-03-28 | Outpatient (CLI) | payer MEDICARE, OTHER ==
[~2024-03-28] MED LIST changes: +DOXY-323 PO; -DOXY-443 PO
[2024-03-28 07:43] LABS: HEMATOCRIT 43.2 % (42.0-52.0); HEMOGLOBIN 14.8 g/dl (13.5-17.5); MEAN CORPUSCULAR HEMOGLOBIN 34.3 pg (27.0-33.0); MEAN CORPUSCULAR HGB CONC 34.3 g/dl (32.0-36.5); MEAN CORPUSCULAR VOLUME 100.2 fl (80.0-96.0); PLATELET COUNT, AUTOMATED 149 10^3/uL (150-450); RED BLOOD COUNT 4.31 10^6/uL (4.30-6.10); WHITE BLOOD COUNT 4.8 10^3/uL (4.0-10.0)
[2024-03-28 08:00] LABS: HEMOGLOBIN A1c 7.4 % (4.0-6.0)
[2024-03-28 08:12] LABS: ALBUMIN 3.8 G/DL (3.2-5.2); ALKALINE PHOSPHATASE 232 U/L (46-116); ALT/SGPT 303 U/L (7.0-40); AST/SGOT 52 U/L (<34); BILIRUBIN,TOTAL 1.4 MG/DL (0.3-1.2); BLOOD UREA NITROGEN 19 MG/DL (9-23); CALCIUM LEVEL 9.7 MG/DL (8.3-10.6); CARBON DIOXIDE LEVEL 24 MMOL/L (20-31); CHLORIDE LEVEL 104 MMOL/L (98-107); CHOLESTEROL LEVEL 155 MG/DL (<200); CHOLESTEROL RISK RATIO 4.66 (<5); CREATININE FOR GFR 0.94 MG/DL (0.70-1.30); GLOMERULAR FILTRATION RATE > 60.0 (>49); GLUCOSE, FASTING 199 MG/DL (74-106); HDL CHOLESTEROL 33.2 MG/DL (>40); LDL CHOLESTEROL 85.4 MG/DL (<100); NON-HDL-C 121.8 MG/DL; POTASSIUM SERUM 4.8 MMOL/L (3.5-5.1); SODIUM LEVEL 138 MMOL/L (136-145); TOTAL PROTEIN 6.6 G/DL (5.7-8.2); TRIGLYCERIDES LEVEL 182 MG/DL (<150)
[2024-03-28 08:13] LABS: THYROID STIMULATING HORMONE 2.451 uIU/ML (0.55-4.78)
[2024-03-28 08:14] LABS: FREE T4 1.33 NG/DL (0.89-1.76)
== END ==
LOC: M LAB 06:15
PROVIDERS: ATTEND Physician Assistant
DX: I10 Essential (primary) hypertension (principal); E78.5 Hyperlipidemia, unspecified; E11.42 Type 2 diabetes mellitus with diabetic polyneuropathy

== ENCOUNTER → 2024-04-26 | Outpatient (CLI) | payer MEDICARE, OTHER ==
[2024-04-26 07:48] LABS: ALBUMIN 4.1 G/DL (3.2-5.2); ALKALINE PHOSPHATASE 126 U/L (46-116); ALT/SGPT 27 U/L (7.0-40); AST/SGOT 20 U/L (<34); BILIRUBIN,DIRECT 0.4 MG/DL (<0.4); BILIRUBIN,TOTAL 1.1 MG/DL (0.3-1.2); TOTAL PROTEIN 6.3 G/DL (5.7-8.2)
[2024-04-26 08:07] LABS: HEPATITIS B SURFACE ANTIGEN NEGATIVE (NEGATIVE)
[2024-04-26 08:29] LABS: HEPATITIS B CORE ANTIBODY IGM NEGATIVE (NEGATIVE); HEPATITIS C VIRUS ABY INDEX < 0.02 INDEX (<0.8)
== END ==
LOC: M LAB 06:22
PROVIDERS: ATTEND Physician Assistant
DX: R94.5 Abnormal results of liver function studies (principal)

== ENCOUNTER → 2024-05-15 | Outpatient (CLI) | payer OTHER, MEDICARE | LOC: M RAD 14:11 | PROVIDERS: ATTEND Internal Medicine Cardiovascular Disease | DX: R06.02 Shortness of breath (principal); I10 Essential (primary) hypertension; R01.1 Cardiac murmur, unspecified ==

== ENCOUNTER → 2024-05-28 | Outpatient (CLI) | payer MEDICARE, OTHER | LOC: M PLAIMG 14:54 | PROVIDERS: ATTEND Internal Medicine Cardiovascular Disease | DX: R06.02 Shortness of breath (principal); R00.1 Bradycardia, unspecified; R60.0 Localized edema ==

== ENCOUNTER → 2024-08-06 | Outpatient (CLI) | payer MEDICARE, OTHER ==
[~2024-08-06] MED LIST changes: -DOXY-323 PO; +DOXY-441 PO
== END ==
LOC: M CARPUL 14:20
PROVIDERS: ATTEND Internal Medicine Cardiovascular Disease
DX: R06.02 Shortness of breath (principal)

== ENCOUNTER → 2024-08-07 | Outpatient (CLI) | payer MEDICARE, OTHER ==
[2024-08-07 11:50] LABS: HEMATOCRIT 42.4 % (42.0-52.0); HEMOGLOBIN 14.9 g/dl (13.5-17.5); MEAN CORPUSCULAR HEMOGLOBIN 33.8 pg (27.0-33.0); MEAN CORPUSCULAR HGB CONC 35.1 g/dl (32.0-36.5); MEAN CORPUSCULAR VOLUME 96.1 fl (80.0-96.0); PLATELET COUNT, AUTOMATED 181 10^3/uL (150-450); RED BLOOD COUNT 4.41 10^6/uL (4.30-6.10); WHITE BLOOD COUNT 6.7 10^3/uL (4.0-10.0)
[2024-08-07 12:26] LABS: ALBUMIN 4.3 G/DL (3.2-5.2); BLOOD UREA NITROGEN 25 MG/DL (9-23); CALCIUM LEVEL 9.6 MG/DL (8.3-10.6); CARBON DIOXIDE LEVEL 22 MMOL/L (20-31); CHLORIDE LEVEL 104 MMOL/L (98-107); CREATININE FOR GFR 0.99 MG/DL (0.70-1.30); GLOMERULAR FILTRATION RATE > 60.0 (>49); GLUCOSE, FASTING 223 MG/DL (74-106); PHOSPHORUS LEVEL 3.7 MG/DL (2.4-5.1); POTASSIUM SERUM 4.1 MMOL/L (3.5-5.1); SODIUM LEVEL 137 MMOL/L (136-145)
== END ==
LOC: M LAB 11:12
PROVIDERS: ATTEND Internal Medicine Cardiovascular Disease
DX: I25.10 Atherosclerotic heart disease of native coronary artery without angina pectoris (principal)

== ENCOUNTER → 2025-08-25 | Outpatient (CLI) | payer MEDICARE, OTHER ==
[~2025-08-25] MED LIST changes: -ANDR1.62 TD; +LISI40TA10 PO; -LISI40TA4 PO; +TEST75GE10 TD
[2025-08-25 07:58] LABS: BASO # 0.1 10^3/uL (0.0-0.2); BASO % 0.9 % (0.0-1.0); EOS # 0.2 10^3/uL (0.0-0.5); EOS % 3.4 % (0.0-3.0); LYMPH # 0.8 10^3/uL (1.5-5.0); LYMPH % 14.4 % (24.0-44.0); MONO # 0.6 10^3/uL (0.0-0.8); MONO % 11.8 % (2.0-8.0); NEUTROPHILS # 3.7 10^3/uL (1.5-8.5); NEUTROPHILS % 68.9 % (36.0-66.0); PLATELET COUNT, AUTOMATED 139 10^3/uL (150-450)
[2025-08-25 08:08] LABS: ESTIMATED AVERAGE GLUCOSE 151.0 MG/DL (60-110)
[2025-08-25 08:28] LABS: ALT/SGPT 35.0 U/L (7.0-40); AST/SGOT 29.0 U/L (<34); CALCIUM LEVEL 9.1 MG/DL (8.3-10.6); CARBON DIOXIDE LEVEL 25.0 MMOL/L (20-31); CHLORIDE LEVEL 105.0 MMOL/L (98-107); CREATININE FOR GFR 1.1 MG/DL (0.70-1.30); GLOMERULAR FILTRATION RATE 72.2 (>42); POTASSIUM SERUM 4.4 MMOL/L (3.5-5.1); SODIUM LEVEL 141.0 MMOL/L (136-145)
== END ==
LOC: M LAB 06:37
PROVIDERS: ATTEND Physician Assistant
DX: E11.42 Type 2 diabetes mellitus with diabetic polyneuropathy (principal); D64.9 Anemia, unspecified

== ENCOUNTER → 2025-08-27 | Outpatient (REF) | payer MEDICARE, OTHER | LOC: M LAB REF 14:49 | PROVIDERS: ATTEND Nurse Practitioner Family | DX: R19.7 Diarrhea, unspecified (principal) ==

== ENCOUNTER → 2025-08-29 | Outpatient (REF) | payer MEDICARE, OTHER | LOC: M LAB REF 09:04 | PROVIDERS: ATTEND Nurse Practitioner Family | DX: R19.7 Diarrhea, unspecified (principal) ==